=== PATIENT | male | born 1950 | race Caucasian/White ===

== ENCOUNTER 2018-11-03 10:25 | Emergency (ER) | payer MEDICARE, BC ==
[2018-11-03 12:04] LABS: ANION GAP 13.7; CHLORIDE,CL 104 mmol/L (101-111); SODIUM,NA 136 mmol/L (135-145)
--- NOTE | 2018-11-03 12:21 | CR ---
Clinical history: 68-year-old male left great toe pain. Interpretation: Abnormal. 3 views left foot confirm chronic severe arthritic degenerative changes first metatarsophalangeal joint i.e. joint space loss, dense reactive sclerosis and marginal spur formation (associated small soft tissue bunion). Note: Differential diagnoses includes gouty arthritis but significantly there are characteristic osteoarthritic changes involving multiple other joints i.e. first tarsal metatarsal, second metatarsal phalangeal, and all interphalangeal/DIP joints of the left forefoot. Tiny heel spur at the insertion plantar aponeurosis base of the os calcis. Vascular calcifications soft tissues (diabetic?). No foreign bodies or inflammatory periostitis. No sign of acute left foot fracture or dislocation. CONCLUSION: Arthritis (see above) with particularly severe involvement left great toe.
--- NOTE | 2018-11-03 13:00 | EDM.PDOC ---
ED HPI GENERAL MEDICAL PROBLEM - General Chief Complaint: Lower Extremity Injury/Pain Stated Complaint: SWOLLEN TOE AND FOOT Time Seen by Provider: 11/03/18 12:40 Source of Information: Reports: Patient History Limitations: Reports: No Limitations - History of Present Illness INITIAL COMMENTS - FREE TEXT/NARRATIVE: This 68 yo male patient reports to the ED with left great toe pain and swelling. The patient reports he has had similar episodes in the past, but previous episodes were not this bad. The patient has not been seen by his primary care facility for his current symptoms. Onset: Gradual Duration: Week(s):, Constant, Getting Worse Location: Reports: Lower Extremity, Left Quality: Reports: Ache, Sharp, Stabbing Severity: Moderate Improves with: Reports: None Worsens with: Reports: None Context: Reports: Other Associated Symptoms: Reports: No Other Symptoms Left Toe-[place] Pain Score (Numeric/FACES): 5 - Related Data Allergies Allergy/AdvReac Type Severity Reaction Status Date / Time No Known Allergies Allergy Verified 11/03/18 11:08 Home Meds: Home Meds Albuterol [Ventolin HFA] 2 puff INH Q4H PRN 11/03/18 [History] Diltiazem HCl [Dilt-Xr] 1 cap PO DAILY 11/03/18 [History] Fluticasone/Vilanterol [Breo Ellipta 200-25 Mcg INH] 1 puff INH DAILY 11/03/18 [ History] Furosemide 1 tab PO DAILY 11/03/18 [History] Nitroglycerin 0.4 mg SL TID PRN 11/03/18 [History] Roflumilast [Daliresp] 1 tab PO DAILY 11/03/18 [History] Umeclidinium [place] [Incruse Ellipta*] 1 puff INH DAILY 11/03/18 [History] Venlafaxine [Venlafaxine HCl ER] 1 cap PO DAILY 11/03/18 [History] Past Medical History Cardiovascular History: Reports: [place]ib, [place] Respiratory History: Reports: Asthma, COPD Genitourinary History: Reports: BPH - Infectious Disease History Infectious Disease History: Reports: Chicken Pox, Measles - Past Surgical History GI Surgical History: Reports: Cholecystectomy Musculoskeletal Surgical History: Reports: Other (See Below) Other Musculoskeletal Surgeries/Procedures:: hx R) ankle surgery Social & Family History - Tobacco Use Smoking Status *Q: Former Smoker Used Tobacco, but Quit: Yes Month/Year Tobacco Last Used: 23 years ago - Caffeine Use Caffeine Use: Reports: Energy Drinks - Recreational Drug Use Recreational Drug Use: No Review of Systems - Review of Systems Review Of Systems: ROS reveals no pertinent complaints other than HPI. ED EXAM, GENERAL - Physical Exam Exam: See Below Exam Limited By: No Limitations General Appearance: Alert, WD/WN, Moderate Distress Eye Exam: Bilateral Eye: EOMI, Normal Inspection, PERRL Ears: Normal External Exam, Normal Canal, Hearing Grossly Normal, Normal TMs Nose: Normal Inspection, Normal Mucosa, No Blood Throat/Mouth: Normal Inspection, Normal Lips, Normal Teeth, Normal Gums, Normal Oropharynx, Normal Voice, No Airway Compromise Head: Atraumatic, Normocephalic Neck: Normal Inspection, Supple, Non-Tender, Full Range of Motion Respiratory/Chest: No Respiratory Distress, Lungs Clear, Normal Breath Sounds, No Accessory Muscle Use, Chest Non-Tender Cardiovascular: Normal Peripheral Pulses, Regular Rate, Rhythm, No Edema, No Gallop, No JVD, No Murmur, No Rub GI/Abdominal: Normal Bowel Sounds, Soft, Non-Tender, No Organomegaly, No Distention, No Abnormal Bruit, No Mass (Male) Exam: Deferred Rectal (Males) Exam: Deferred Back Exam: Normal Inspection, Full Range of Motion, NT Extremities: Joint Swelling (left great toe erythema ) Neurological: Alert, Oriented, CN II-XII Intact, Normal Cognition, Normal Gait, Normal Reflexes, No Motor/Sensory Deficits Psychiatric: Normal Affect, Normal Mood Lymphatic: No Adenopathy Course - Vital Signs Last Recorded V/S: Last Vital Signs Temp 36.4 C 11/03/18 11:18 Pulse 95 11/03/18 11:18 Resp 16 11/03/18 11:18 BP 103/68 11/03/18 11:18 Pulse Ox 97 11/03/18 11:18 - Orders/Labs/Meds Labs: Laboratory Tests 11/03/18 11/03/18 Range/Units 11:37 11:37 WBC 6.4 (5.0-10.0) 10^3/uL RBC 4.63 (4.6-6.2) 10^6/uL Hgb 14.8 (14.0-18.0) g/dL Hct 42.6 (40.0-54.0) % MCV 92.0 (80-100) fL MCH 32.0 (27.0-34.0) pg MCHC 34.7 (33.0-35.0) g/dL Plt Count 154 (150-450) 10^3/uL Neut % (Auto) 64.3 (42.2-75.2) % Lymph % (Auto) 24.1 (20.5-50.1) % [place] % (Auto) 9.4 H (2-8) % Eos % (Auto) 1.3 (1.0-3.0) % Baso % (Auto) 0.9 (0.0-1.0) % Sodium 136 (135-145) mmol/L Potassium 3.7 (3.6-5.0) mmol/L Chloride 104 (101-111) mmol/L Carbon Dioxide 22.0 (21.0-31.0) mmol/L Anion Gap 13.7 BUN 15 (7-18) mg/dL Creatinine 0.8 (0.6-1.3) mg/dL Est Cr Clr Drug Dosing 88.38 mL/min Estimated GFR (MDRD) > 60 BUN/Creatinine Ratio 18.75 Glucose 146 H (74-105) mg/dL Uric Acid 9.9 H (2.6-7.2) mg/dL Calcium 8.9 (8.4-10.2) mg/dl Total Bilirubin 1.6 H (0.2-1.0) mg/dL AST 30 (10-42) IU/L ALT 20 (10-60) IU/L Alkaline Phosphatase 96 (42-121) IU/L Total Protein 6.8 (6.7-8.2) g/dl Albumin 3.8 (3.2-5.5) g/dl Globulin 3.0 Albumin/Globulin Ratio 1.27 Departure - Departure Time of Disposition: 12:55 Disposition: Home, Self-Care 01 Condition: Fair Clinical Impression: Acute gout involving toe Qualifiers: Gout etiology: unspecified cause Laterality: left Qualified Code(s): M10.9 - Gout, unspecified - Discharge Information *PRESCRIPTION DRUG MONITORING PROGRAM REVIEWED*: Not Applicable *COPY OF PRESCRIPTION DRUG MONITORING REPORT IN PATIENT DASIA: Not Applicable Instructions: Low-Purine Eating Plan, Gout, [id number] Forms: ED Department Discharge Care Plan Goals: The patient was advised of the examination and lab results during the visit. The patient was discharged with a script for Colchicine (0.6 mg) #3 to take 2 by mouth initially and 1 by mouth 1 hour after the initial dose. The patient should follow-up with his primary care facility next week for continued evaluation and management. If the patient has any additional symptoms or concerns, the patient should either return to the emergency department or visit his primary care facility.
== END 2018-11-03 13:04 | disposition home or self-care (01) ==
LOC: DL.ED 10:25
DX: M10.9 Gout, unspecified (principal); I48.91 Unspecified atrial fibrillation; I25.2 Old myocardial infarction; J45.909 Unspecified asthma, uncomplicated; Z87.891 Personal history of nicotine dependence; Z79.899 Other long term (current) drug therapy
CPT/HCPCS: 36415; 73630-LT; 80053; 84550; 85025; 99283; 99283-25

== ENCOUNTER 2019-06-11 13:26 | Emergency (ER) | payer MEDICARE, BC ==
--- NOTE | 2019-06-11 13:43 | EDM.PDOC ---
ED HPI GENERAL MEDICAL PROBLEM - General Chief Complaint: Lower Extremity Injury/Pain Stated Complaint: RIGHT FOOT, LITTLE TOE AND NEXT TOE IN Time Seen by Provider: 06/11/19 13:40 Source of Information: Reports: Patient, Old Records, RN, RN Notes Reviewed History Limitations: Reports: No Limitations - History of Present Illness INITIAL COMMENTS - FREE TEXT/NARRATIVE: 69 y.o male presents to ER with c/o right foot 4th & 5th toe pain that began 1 week ago. Patient reports that he did stub his little toe during at the time the pain began. Patient reports that pain is located between 4th and 5th toe. Patient denies shooting pain, states that it hurts to put pressure on that foot. Patient denies medication use for pain relief. Patient denies history of toe pain. Duration: Week(s): (1) Location: Reports: Lower Extremity, Right Quality: Reports: Ache Severity: Moderate Improves with: Reports: None Worsens with: Reports: None Associated Symptoms: Reports: No Other Symptoms Right Foot Pain Score (Numeric/FACES): 5 - Related Data Allergies Allergy/AdvReac Type Severity Reaction Status Date / Time No Known Allergies Allergy Verified 06/11/19 13:35 Home Meds: Home Meds Albuterol [Ventolin HFA] 2 puff INH Q4H PRN 11/03/18 [History] Diltiazem HCl [Dilt-Xr] 1 cap PO DAILY 11/03/18 [History] Fluticasone/Vilanterol [Breo Ellipta 200-25 MCG Inhalation Kit] 1 puff INH DAILY 11/03/18 [History] Furosemide 1 tab PO DAILY 11/03/18 [History] Nitroglycerin 0.4 mg SL TID PRN 11/03/18 [History] Roflumilast [Daliresp] 1 tab PO DAILY 11/03/18 [History] Umeclidinium [place] [Incruse Ellipta*] 1 puff INH DAILY 11/03/18 [History] Venlafaxine [Venlafaxine HCl ER] 1 cap PO DAILY 11/03/18 [History] Past Medical History Cardiovascular History: Reports: Afib, [place] Respiratory History: Reports: Asthma, COPD Genitourinary History: Reports: BPH Musculoskeletal History: Reports: Gout - Infectious Disease History Infectious Disease History: Reports: Chicken Pox, Measles - Past Surgical History GI Surgical History: Reports: Cholecystectomy Musculoskeletal Surgical History: Reports: Other (See Below) Other Musculoskeletal Surgeries/Procedures:: hx R) ankle surgery Social & Family History - Family History Family Medical History: Noncontributory - Caffeine Use Caffeine Use: Reports: Energy Drinks - Living Situation & Occupation Occupation: Retired Review of Systems - Review of Systems Review Of Systems: Comprehensive ROS is negative, except as noted in HPI. 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 No: Joint Swelling, Tobias's Sign Neurological: Alert, Oriented, No Motor/Sensory Deficits Psychiatric: Normal Mood Skin Exam: Other (Interdigit webspace of Rt toes 4 & 5 with white loose skin and mild redness with well defined border consistent with tinea pedis) Course - Vital Signs Last Recorded V/S: Last Vital Signs Temp 97.2 F 06/11/19 13:31 Pulse 90 06/11/19 13:31 Resp 18 06/11/19 13:31 BP 140/73 06/11/19 13:31 Pulse Ox 98 06/11/19 13:31 - Orders/Labs/Meds Orders: Active Orders 24 hr Category Date Time Status Toes Multiple Rt [CR] Urgent Exams 06/11/19 13:47 Taken - Radiology Interpretation Free Text/Narrative:: XR Rt toes: no acute fractures, see Rad. report. Departure - Departure Time of Disposition: 14:31 Disposition: Home, Self-Care 01 Condition: Good Clinical Impression: Tinea pedis of right foot - Discharge Information *PRESCRIPTION DRUG MONITORING PROGRAM REVIEWED*: No *COPY OF PRESCRIPTION DRUG MONITORING REPORT IN PATIENT DASIA: No Instructions: Athlete's Foot, [id number] Forms: ED Department Discharge Additional Instructions: Rx: Fluconazole 100mg Keep space between toes clean and dry. Use an over the counter antifungal foot powder. Follow up in clinic in 2 weeks for recheck. - My Orders Last 24 Hours: My Active Orders 06/11/19 13:47 Toes Multiple Rt [CR] Urgent - Assessment/Plan Last 24 Hours: My Active Orders 06/11/19 13:47 Toes Multiple Rt [CR] Urgent
--- NOTE | 2019-06-11 14:57 | CR ---
EXAMINATION: Toes Multiple Rt SEX: Male AGE: 69 years CLINICAL HISTORY: 69-year-old male right forefoot pain (stubbed Rt 4th/5th toes, 1 week ago). INTERPRETATION: 1. Chronic arthritic reactive changes first metatarsophalangeal and all interphalangeal/DIP joints of the right forefoot. 2. No sign of right forefoot (toe) fracture or dislocation. (Sesamoid bones) 3. No foreign bodies. 4. Large heel spur at insertion plantar aponeurosis base of the os calcis. CONCLUSION: No fractures. Arthritis.
== END 2019-06-11 14:48 | disposition home or self-care (01) ==
LOC: DL.ED 13:26
DX: B35.3 Tinea pedis (principal); M21.961 Unspecified acquired deformity of right lower leg; I25.2 Old myocardial infarction; J44.9 Chronic obstructive pulmonary disease, unspecified; Z79.51 Long term (current) use of inhaled steroids
CPT/HCPCS: 73660-RT; 99283-25

== ENCOUNTER 2021-01-01 17:02 | Inpatient (IN) | payer MEDICARE, BC ==
--- NOTE | 2021-01-01 17:55 | EDM.PDOC ---
ED HPI GENERAL MEDICAL PROBLEM - General Chief Complaint: General Stated Complaint: ANIMEIA, SHORT OF BREATH. FATIGUE, LOW HEMAGLOBIN Time Seen by Provider: 01/01/21 17:55 Source of Information: Reports: Patient History Limitations: Reports: No Limitations - History of Present Illness INITIAL COMMENTS - FREE TEXT/NARRATIVE: Patient comes emergency department today from the clinic for further evaluation of low hemoglobin. This patient reports over the past 3 to 4 weeks that he has had increasing generalized weakness lightheadedness and dizziness. He went to the clinic today for the concerns of the symptoms. He was found to have a hemoglobin of 5. He was sent to the emergency department for further evaluation. Upon arrival the patient is alert and appropriate. He denies any chest pain no shortness of breath difficulty breathing cough or congestion. He does complain of generalized weakness malaise fatigue. No syncope. He does have some lightheadedness upon standing. Over the past week he has developed right lower quadrant abdominal pain. Is not gotten worse or radiated. He has not had any nausea or vomiting. He has had no hematuria dysuria or urinary f requency. No black or tarry stools. His last colonoscopy was about 5 years ago. He has never noticed any black or tarry stools. - Related Data Allergies Allergy/AdvReac Type Severity Reaction Status Date / Time No Known Allergies Allergy Verified 06/11/19 13:35 Home Meds: Home Meds Albuterol [Ventolin HFA] 2 puff INH Q4H PRN 11/03/18 [History] Fluticasone/Vilanterol [Breo Ellipta 200-25 MCG Inhalation Kit] 1 puff INH DAILY 11/03/18 [History] Furosemide 1 tab PO DAILY 11/03/18 [History] Nitroglycerin 0.4 mg SL TID PRN 11/03/18 [History] Roflumilast [Daliresp] 1 tab PO DAILY 11/03/18 [History] Umeclidinium [place] [Incruse Ellipta*] 1 puff INH DAILY 11/03/18 [History] Venlafaxine [Venlafaxine HCl ER] 1 cap PO DAILY 11/03/18 [History] dilTIAZem HCL [Dilt-Xr] 1 cap PO DAILY 11/03/18 [History] Past Medical History - Past Health History Medical/Surgical History: Denies Medical/Surgical History Cardiovascular History: Reports: Afib, [place] Respiratory History: Reports: Asthma, COPD Genitourinary History: Reports: BPH Musculoskeletal History: Reports: Gout Endocrine/Metabolic History: Reports: Obesity/BMI 30+ - Infectious Disease History Infectious Disease History: Reports: Chicken Pox, Measles - Past Surgical History HEENT Surgical History: Reports: Cataract Surgery, Other (See Below) Other HEENT Surgeries/Procedures: bilateral eye Cardiovascular Surgical History: Reports: Coronary Artery Stent Respiratory Surgical History: Reports: None GI Surgical History: Reports: Cholecystectomy Musculoskeletal Surgical History: Reports: Other (See Below) Other Musculoskeletal Surgeries/Procedures:: hx R) ankle surgery Social & Family History - Family History Family Medical History: No Pertinent Family History - Caffeine Use Caffeine Use: Reports: Energy Drinks - Living Situation & Occupation Occupation: Retired ED ROS GENERAL - Review of Systems Review Of Systems: Comprehensive ROS is negative, except as noted in HPI. ED EXAM, GENERAL - Physical Exam Exam: See Below Exam Limited By: No Limitations General Appearance: Alert, WD/WN, No Apparent Distress Ears: Normal External Exam Nose: Normal Inspection Throat/Mouth: Normal Inspection Head: Atraumatic, Normocephalic Neck: Normal Inspection, Supple, Non-Tender Respiratory/Chest: No Respiratory Distress, Lungs Clear, Normal Breath Sounds, No Accessory Muscle Use, Chest Non-Tender Cardiovascular: Normal Peripheral Pulses, Regular Rate, Rhythm, Systolic Murmur Peripheral Pulses: 2+: Radial (L), Radial (R), Posterior Tibial (L), Posterior Tibial (R), Dorsalis Pedis (L), Dorsalis Pedis (R) GI/Abdominal: Normal Bowel Sounds, Soft, Tender (He has some mild tenderness to the right lateral lower quadrant of his abdomen. Without guarding rebound or rigidity.) (Male) Exam: Deferred Rectal (Males) Exam: Heme - Stool Back Exam: Normal Inspection, Full Range of Motion Extremities: Normal Inspection, Normal Range of Motion, No Pedal Edema, Normal Capillary Refill Neurological: Alert, Oriented, No Motor/Sensory Deficits Skin Exam: Dry, Intact, No Rash, Cool, Pallor Lymphatic: No Adenopathy Course - Vital Signs Last Recorded V/S: Last Vital Signs Temp 99.5 F 01/01/21 20:33 Pulse 78 01/01/21 20:33 Resp 18 01/01/21 20:33 BP 132/51 L 01/01/21 20:33 Pulse Ox 98 01/01/21 20:33 - Orders/Labs/Meds Orders: Active Orders 24 hr Category Date Time Status EKG Documentation Completion [RC] STAT Care 01/01/21 18:01 Active RED BLOOD CELLS LP [BBK] Stat Lab 01/01/21 18:10 Results TYPE AND SCREEN [BBK] Stat Lab 01/01/21 18:10 Results Transfuse PRBC [Transfuse Red Blood Cells] [COMM] Stat Oth 01/01/21 18:02 Ordered Labs: Laboratory Tests 01/01/21 01/01/21 01/01/21 Range/Units 18:10 18:10 18:10 WBC 3.3 L (5.0-10.0) 10^3/uL RBC 1.32 L (4.6-6.2) 10^6/uL Hgb 4.8 L* D (14.0-18.0) g/dL Hct 15.0 L* (40.0-54.0) % MCV 113.6 H D (80-100) fL MCH 36.4 H (27.0-34.0) pg MCHC 32.0 L (33.0-35.0) g/dL Plt Count 167 (150-450) 10^3/uL Neut % (Auto) 37.6 L (42.2-75.2) % Lymph % (Auto) 37.8 (20.5-50.1) % [place] % (Auto) 20.0 H (2-8) % Eos % (Auto) 3.7 H (1.0-3.0) % Baso % (Auto) 0.9 (0.0-1.0) % Sodium 146 H (136-145) mmol/L Potassium 3.4 L (3.5-5.1) mmol/L Chloride 109 H (98-107) mmol/L Carbon Dioxide 29 (21-32) mmol/L Anion Gap 11.4 (7-13) mEq/L BUN 14 (7-18) mg/dL Creatinine 0.94 (0.70-1.30) mg/dL Est Cr Clr Drug Dosing 75.50 mL/min Estimated GFR (MDRD) > 60 Glucose 125 H (70-99) mg/dL Lactic Acid 1.6 (0.4-2.0) mmol/L Calcium 8.1 L (8.5-10.1) mg/dL Troponin I High Sens 13 (<=76) pg/mL B-Natriuretic Peptide 137 H (0-100) pg/ml SARS-CoV-2 RNA (JENA) (NEGATIVE) Blood Type Gel Antibody Screen Crossmatch 01/01/21 01/01/21 Range/Units 18:10 18:30 WBC (5.0-10.0) 10^3/uL RBC (4.6-6.2) 10^6/uL Hgb (14.0-18.0) g/dL Hct (40.0-54.0) % MCV (80-100) fL MCH (27.0-34.0) pg MCHC (33.0-35.0) g/dL Plt Count (150-450) 10^3/uL Neut % (Auto) (42.2-75.2) % Lymph % (Auto) (20.5-50.1) % [place] % (Auto) (2-8) % Eos % (Auto) (1.0-3.0) % Baso % (Auto) (0.0-1.0) % Sodium (136-145) mmol/L Potassium (3.5-5.1) mmol/L Chloride (98-107) mmol/L Carbon Dioxide (21-32) mmol/L Anion Gap (7-13) mEq/L BUN (7-18) mg/dL Creatinine (0.70-1.30) mg/dL Est Cr Clr Drug Dosing mL/min Estimated GFR (MDRD) Glucose (70-99) mg/dL Lactic Acid (0.4-2.0) mmol/L Calcium (8.5-10.1) mg/dL Troponin I High Sens (<=76) pg/mL B-Natriuretic Peptide (0-100) pg/ml SARS-CoV-2 RNA (JENA) Negative (NEGATIVE) Blood Type O POSITIVE Gel Antibody Screen Negative Crossmatch See Detail Meds: Medications Discontinued Medications Generic Name Dose Route Start Last Admin Trade Name Freq PRN Reason Stop Dose Admin Iopamidol 100 ml 01/01/21 19:25 01/01/21 19:27 Iopamidol 612 Mg/Ml 100 Ml Bottle IVPUSH 01/01/21 19:26 100 ml ONETIME ONE Administration - Re-Assessments/Exams Free Text/Narrative Re-Assessment/Exam: 01/01/21 1815 IV established labs drawn. Hemoccult pending. EKG done. 2 units RBCs ordered. Hemoccult negative. Laboratory evaluation with a CBC of a WBC 3.3, hemoglobin 4.8, he adequate 15.0 platelet count 167. Sodium 146, potassium 3.4, chloride 109 glucose 125. Troponin high-sensitivity 13. proBNP 137. We started the first unit of blood in the emergency department. I called and spoke with Dr. Inman. HPI ER course findings and concerns were relayed to him verbally over the phone. I think that this is most likely a chronic low volume GI bleed. Why he is vitally stable and tolerating his hemoglobin this well. Although his Hemoccult is negative I find no other signs of bleeding at this time. CT scan of his abdomen is negative for any acute findings. The doctor would like the patient evaluated by gastroenterology. I called and spoke with the hospitals in [place] as well as [place]. They do not have any beds available until tomorrow afternoon. He was placed on a waiting list for transfer to [facility]. Dr. Inman did accept this patient here for further care and management and most likely transfer when a bed is available in [place]. I discussed the findings and concerns with the patient. He is comfortable with this plan and his questions were answered. Departure - Departure Time of Disposition: 20:00 Disposition: Admitted As Inpatient 66 Clinical Impression: Anemia Qualifiers: Anemia type: unspecified type Qualified Code(s): D64.9 - Anemia, unspecified Abdominal pain Qualifiers: Abdominal location: unspecified location Qualified Code(s): R10.9 - Unspecified abdominal pain - Discharge Information Sepsis Event Note (ED) - Evaluation Sepsis Screening Result: No Definite Risk - Focused Exam Vital Signs: Vital Signs Temp Pulse Resp BP Pulse Ox 01/01/21 17:23 98.3 F 81 18 139/53 L 99 - My Orders Last 24 Hours: My Active Orders 01/01/21 18:01 EKG Documentation Completion [RC] STAT 01/01/21 18:02 Transfuse PRBC [Transfuse Red Blood Cells] [COMM] Stat 01/01/21 18:10 RED BLOOD CELLS LP [BBK] Stat TYPE AND SCREEN [BBK] Stat - Assessment/Plan Last 24 Hours: My Active Orders 01/01/21 18:01 EKG Documentation Completion [RC] STAT 01/01/21 18:02 Transfuse PRBC [Transfuse Red Blood Cells] [COMM] Stat 01/01/21 18:10 RED BLOOD CELLS LP [BBK] Stat TYPE AND SCREEN [BBK] Stat
[2021-01-01 18:37] LABS: ANION GAP 11.4 mEq/L (7-13); CHLORIDE,CL 109 mmol/L (98-107); SODIUM,NA 146 mmol/L (136-145)
--- NOTE | 2021-01-01 19:07 | PCM.EKG ---
#1 Interpretation EKG Date: 01/01/21 Time: 18:26 Rhythm: NSR Rate (Beats/Min): 77 [place]: Normal P-Wave: Present QRS: RBBB ST-T: Normal QT: Normal Comparison: No Change
[2021-01-01] MEDS ORDERED: Iopamidol 612 MG/ML 100 ML Bottle IVPUSH ONE (19:25)
--- NOTE | 2021-01-01 19:59 | CT ---
PROCEDURE INFORMATION: Exam: CT Abdomen And Pelvis With Contrast Exam date and time: 01/01/2021 7:08 PM Age: 70 years old Clinical indication: Abdominal pain; Localized; Right; Prior surgery; Surgery date: 6+ months; Surgery type: Cholecystectomy; Additional info: Abd pain anemia TECHNIQUE: Imaging protocol: Computed tomography of the abdomen and pelvis with contrast. Radiation optimization: All CT scans at this facility use at least one of these dose optimization techniques: automated exposure control; mA and/or kV adjustment per patient size (includes targeted exams where dose is matched to clinical indication); or iterative reconstruction. Contrast material: ISOVUE 300; Contrast volume: 100 ml; Contrast route: INTRAVENOUS (IV); COMPARISON: No relevant prior studies available. FINDINGS: Lungs: Patchy parenchymal infiltrate at the right lung base. Liver: Normal. No mass. Gallbladder and bile ducts: There has been a cholecystectomy. Pancreas: There is diffuse pancreatic atrophy. Spleen: Normal. No splenomegaly. Adrenal glands: Normal. No mass. Kidneys and ureters: 9 mm simple cortical cyst left kidney. No follow-up suggested. Kidneys otherwise unremarkable. Stomach and bowel: Moderate diverticulosis is present in the distal colon. No diverticulitis. Appendix: No evidence of appendicitis. Intraperitoneal space: Unremarkable. No free air. No significant fluid collection. Vasculature: The aortoiliac vessels demonstrate mild atherosclerotic calcification. Lymph nodes: Unremarkable. No enlarged lymph nodes. Urinary bladder: Unremarkable as visualized. Reproductive: The prostate gland demonstrates marked hyperplasia. Bones/joints: Moderate central spinal stenosis L4-L5. The spine demonstrates moderate degenerative changes. Soft tissues: There is a small umbilical hernia. There is no evidence of incarceration. Other findings: Osteoporosis. IMPRESSION: 1. Patchy parenchymal infiltrate at the right lung base. 2. Marked prostatic hyperplasia. 3. There has been a cholecystectomy. 4. There is diffuse pancreatic atrophy. 5. Moderate diverticulosis is present in the distal colon. No diverticulitis. COMMENTS: Consistent with the [place]'s Incidental Findings Committee white paper (J Am Lenora Radiol 2018): Any incidental renal lesion less than 1 cm or classified as too small to characterize, or any incidental cystic renal lesion characterized as simple-appearing, is likely benign. No follow-up imaging is recommended for these lesions per consensus recommendations based on imaging criteria.
[2021-01-01] MEDS ORDERED: Acetaminophen 325 MG Tab PO PRN (21:20)
[2021-01-01] MEDS ORDERED: Sodium Chloride 0.9% 10 ML Syringe FLUSH PRN (21:20)
[2021-01-01] MEDS ORDERED: Ondansetron 4 MG/2 ML SDV IVPUSH PRN (21:20)
[2021-01-01] MEDS ORDERED: Potassium Chloride 10 MEQ Tab.ER PO ONE (21:22)
[2021-01-01] MEDS ORDERED: cefTRIAXone 1 GM in Sodium Chloride 0.9% 50 ML IV SCH (21:30)
[2021-01-01] MEDS ORDERED: Azithromycin 500 MG in Sodium Chloride 0.9% 250 ML IV SCH (21:30)
--- NOTE | 2021-01-01 21:32 | PCM.HP ---
H&P History of Present Illness - General Date of Service: 01/01/21 Admit Problem/Dx: Admission Diagnosis/Problem Admission Diagnosis/Problem Anemia Source of Information: Patient - History of Present Illness Initial Comments - Free Text/Narative: The patient is a 70-year-old male who presents with chief complaint of generalized weakness. The patient states he had been feeling unwell for approximately 2 weeks and saw his primary care physician, Dr. Monsalve, and was subsequently referred to the emergency department because his hemoglobin was found to be profoundly low. The patient admits to experiencing fatigue, dyspnea on exertion, lightheadedness, dizziness. He denies melena or hematochezia. He denies any weight loss over last 6 months. He states that his last colonoscopy was in 2018 and it was unremarkable. He states that he had an EGD approximately 12 years prior to hospitalization but for some unknown reason they were not able to fully enter the stomach for the examination. The patient denies any NSAID use aside from aspirin 81 mg p.o. daily. He indicates that he may have overused if not abused alcohol when he was approximately 25 years old but no longer uses alcohol. He presents for further evaluation - Related Data Allergies/Adverse Reactions: Allergies Allergy/AdvReac Type Severity Reaction Status Date / Time No Known Allergies Allergy Verified 06/11/19 13:35 Home Medications: Home Meds Albuterol [Ventolin HFA] 2 puff INH Q4H PRN 11/03/18 [History] Fluticasone/Vilanterol [Breo Ellipta 200-25 MCG Inhalation Kit] 1 puff INH DAILY 11/03/18 [History] Furosemide 1 tab PO DAILY 11/03/18 [History] Nitroglycerin 0.4 mg SL TID PRN 11/03/18 [History] Roflumilast [Daliresp] 1 tab PO DAILY 11/03/18 [History] Umeclidinium [place] [Incruse Ellipta*] 1 puff INH DAILY 11/03/18 [History] Venlafaxine [Venlafaxine HCl ER] 1 cap PO DAILY 11/03/18 [History] dilTIAZem HCL [Dilt-Xr] 1 cap PO DAILY 11/03/18 [History] Past Medical History - Past Health History Medical/Surgical History: Denies Medical/Surgical History Cardiovascular History: Reports: Afib, CT Respiratory History: Reports: Asthma, COPD Genitourinary History: Reports: BPH Musculoskeletal History: Reports: Gout Endocrine/Metabolic History: Reports: Obesity/BMI 30+ - Infectious Disease History Infectious Disease History: Reports: Chicken Pox, Measles - Past Surgical History HEENT Surgical History: Reports: Cataract Surgery, Other (See Below) Other HEENT Surgeries/Procedures: bilateral eye Cardiovascular Surgical History: Reports: Coronary Artery Stent Respiratory Surgical History: Reports: None GI Surgical History: Reports: Cholecystectomy Musculoskeletal Surgical History: Reports: Other (See Below) Other Musculoskeletal Surgeries/Procedures:: hx R) ankle surgery Social & Family History - Family History Family Medical History: No Pertinent Family History - Tobacco Use Tobacco Use Status *Q: Unknown Ever Used Tobacco - Caffeine Use Caffeine Use: Reports: Energy Drinks - Living Situation & Occupation Occupation: Retired H&P Review of Systems - Review of Systems: Review Of Systems: See Below General: Reports: No Symptoms HEENT: Reports: No Symptoms Pulmonary: Reports: No Symptoms Cardiovascular: Reports: No Symptoms Gastrointestinal: Reports: No Symptoms Genitourinary: Reports: No Symptoms Musculoskeletal: Reports: No Symptoms Skin: Reports: No Symptoms Psychiatric: Reports: No Symptoms Neurological: Reports: No Symptoms Hematologic/Lymphatic: Reports: No Symptoms Immunologic: Reports: No Symptoms Exam - Exam Exam: See Below - Vital Signs Vital Signs: Last Vital Signs Temp 98.8 F 01/01/21 20:48 Pulse 76 01/01/21 20:48 Resp 18 01/01/21 20:48 BP 124/49 L 01/01/21 20:48 Pulse Ox 98 01/01/21 20:48 Weight: 220 lb - Exam General: Alert, Oriented, 4 HEENT: PERRLA, Hearing Intact, Mucosa Moist & [place], Nares Patent, Normal Nasal Septum, Posterior Pharynx Clear, Conjunctiva Clear, EOMI, EACs Clear, TMs Clear Neck: Supple, Trachea Midline, 2 Lungs: Clear to Auscultation, Normal Respiratory Effort Cardiovascular: Regular Rate, Regular Rhythm GI/Abdominal Exam: Normal Bowel Sounds, Soft, Non-Tender, No Organomegaly, No Distention, No Abnormal Bruit, No Mass, Pelvis Stable Back Exam: Normal Inspection, Full Range of Motion, NT Extremities: Normal Inspection, Normal Range of Motion, Non-Tender, No Pedal Edema, Normal Capillary Refill Peripheral Pulses: 2+: Carotid (L), Carotid (R), Brachial (L), Brachial (R), Radial (L), Radial (R), Femoral (L), Femoral (R), Popliteal (L), Popliteal (R), Posterior Tibial (L), Posterior Tibial (R), Dorsalis Pedis (L), Dorsalis Pedis (R) Skin: Warm, Dry, Intact Neurological: Cranial Nerves Intact, Reflexes Equal Bilateral Neuro Extensive - Mental Status: Alert, Oriented x3, Normal Mood/Affect, Normal Cognition Neuro Extensive - Motor, Sensory, Reflexes: CN II-XII Intact, Normal Gait, Normal Reflexes DTR: 2+: Bicep (L), Bicep (R), Tricep (L), Tricep (R), Patella (L), Patella (R), Achilles (L), Achilles (R) Psychiatric: Alert, Normal Affect, Normal Mood - Patient Data Lab Results Last 24 hrs: Laboratory Results - last 24 hr 01/01/21 01/01/21 01/01/21 Range/Units 18:10 18:10 18:10 WBC 3.3 L (5.0-10.0) 10^3/uL RBC 1.32 L (4.6-6.2) 10^6/uL Hgb 4.8 L* D (14.0-18.0) g/dL Hct 15.0 L* (40.0-54.0) % MCV 113.6 H D (80-100) fL MCH 36.4 H (27.0-34.0) pg MCHC 32.0 L (33.0-35.0) g/dL Plt Count 167 (150-450) 10^3/uL Neut % (Auto) 37.6 L (42.2-75.2) % Lymph % (Auto) 37.8 (20.5-50.1) % [place] % (Auto) 20.0 H (2-8) % Eos % (Auto) 3.7 H (1.0-3.0) % Baso % (Auto) 0.9 (0.0-1.0) % Sodium 146 H (136-145) mmol/L Potassium 3.4 L (3.5-5.1) mmol/L Chloride 109 H (98-107) mmol/L Carbon Dioxide 29 (21-32) mmol/L Anion Gap 11.4 (7-13) mEq/L BUN 14 (7-18) mg/dL Creatinine 0.94 (0.70-1.30) mg/dL Est Cr Clr Drug Dosing 75.50 mL/min Estimated GFR (MDRD) > 60 Glucose 125 H (70-99) mg/dL Lactic Acid 1.6 (0.4-2.0) mmol/L Calcium 8.1 L (8.5-10.1) mg/dL Troponin I High Sens 13 (<=76) pg/mL B-Natriuretic Peptide 137 H (0-100) pg/ml SARS-CoV-2 RNA (JENA) (NEGATIVE) Blood Type Gel Antibody Screen Crossmatch 01/01/21 01/01/21 Range/Units 18:10 18:30 WBC (5.0-10.0) 10^3/uL RBC (4.6-6.2) 10^6/uL Hgb (14.0-18.0) g/dL Hct (40.0-54.0) % MCV (80-100) fL MCH (27.0-34.0) pg MCHC (33.0-35.0) g/dL Plt Count (150-450) 10^3/uL Neut % (Auto) (42.2-75.2) % Lymph % (Auto) (20.5-50.1) % [place] % (Auto) (2-8) % Eos % (Auto) (1.0-3.0) % Baso % (Auto) (0.0-1.0) % Sodium (136-145) mmol/L Potassium (3.5-5.1) mmol/L Chloride (98-107) mmol/L Carbon Dioxide (21-32) mmol/L Anion Gap (7-13) mEq/L BUN (7-18) mg/dL Creatinine (0.70-1.30) mg/dL Est Cr Clr Drug Dosing mL/min Estimated GFR (MDRD) Glucose (70-99) mg/dL Lactic Acid (0.4-2.0) mmol/L Calcium (8.5-10.1) mg/dL Troponin I High Sens (<=76) pg/mL B-Natriuretic Peptide (0-100) pg/ml SARS-CoV-2 RNA (JENA) Negative (NEGATIVE) Blood Type O POSITIVE Gel Antibody Screen Negative Crossmatch See Detail Result Diagrams: 01/01/21 18:10 01/01/21 18:10 Ronan Results Last 24 hrs: Microbiology 01/01/21 18:30 Stool Occult Blood (RONAN) - Final Stool / Feces NEGATIVE OCCULT BLOOD REFERENCE RANGE: NEGATIVE Problem List Initiated/Reviewed/Updated: Yes Orders Last 24hrs: Active Orders 24 hr Category Date Time Status Admission Status [Patient Status] [ADT] Routine ADT 01/01/21 20:02 Active Antiembolic Devices [RC] PER UNIT ROUTINE Care 01/01/21 21:21 Ordered Blood Glucose Check, Bedside [RC] WITHMEALSANDBED Care 01/01/21 21:20 Ordered Peripheral IV Care [RC] . DIRECTED Care 01/01/21 21:22 Ordered Up With Assistance [RC] ASDIRECTED Care 01/01/21 21:20 Ordered Vital Signs [RC] Q4H Care 01/01/21 21:20 Ordered Consistent Carbohydrate Diet [DIET] Diet 01/01/21 Dinner Ordered BASIC METABOLIC PANEL,BMP [CHEM] Routine Lab 01/02/21 05:00 Ordered ERYTHROPOIETIN [REF] Routine Lab 01/01/21 21:26 Ordered FERRITIN [CHEM] Routine Lab 01/01/21 21:23 Ordered FOLIC ACID [CHEM] Routine Lab 01/01/21 21:24 Ordered HGB [HEMOGLOBIN] [HEME] Q6H Lab 01/01/21 23:59 Ordered HGB [HEMOGLOBIN] [HEME] Q6H Lab 01/02/21 05:59 Ordered HGB [HEMOGLOBIN] [HEME] Q6H Lab 01/02/21 11:59 Ordered HGB [HEMOGLOBIN] [HEME] Q6H Lab 01/02/21 17:59 Ordered HGB [HEMOGLOBIN] [HEME] Q6H Lab 01/02/21 23:59 Ordered HGB [HEMOGLOBIN] [HEME] Q6H Lab 01/03/21 05:59 Ordered HGB [HEMOGLOBIN] [HEME] Q6H Lab 01/03/21 11:59 Ordered HGB [HEMOGLOBIN] [HEME] Q6H Lab 01/03/21 17:59 Ordered INR,PT,PROTHROMBIN TIME [COAG] Routine Lab 01/01/21 21:23 Ordered IRON/TIBC [CHEM] Routine Lab 01/01/21 21:24 Ordered LACTATE DEHYDROGENASE,LDH [CHEM] Routine Lab 01/01/21 21:26 Ordered PSA SCREEN [CHEM] Routine Lab 01/01/21 21:25 Ordered PTT,PARTIAL THROMBOPLSTIN TIME [COAG] Routine Lab 01/01/21 21:23 Ordered RED BLOOD CELLS LP [BBK] Stat Lab 01/01/21 18:10 Results RETICULOCYTE COUNT [HEME] Routine Lab 01/01/21 21:26 Ordered T4 FREE [CHEM] Routine Lab 01/01/21 21:24 Ordered TSH ULTRASENSITIVE [CHEM] Routine Lab 01/01/21 21:24 Ordered TYPE AND SCREEN [BBK] Stat Lab 01/01/21 18:10 Results VITAMIN B12 [CHEM] Routine Lab 01/01/21 21:24 Ordered Acetaminophen [TylenoL] Med 01/01/21 21:20 Ordered 650 mg PO Q4H PRN Azithromycin [Zithromax] 500 mg Med 01/01/21 21:30 Ordered Sodium Chloride 0.9% [Normal Saline (AdvBag)] 250 ml IV Q24H Ondansetron [Zofran] Med 01/01/21 21:20 Ordered 4 mg IVPUSH Q4H PRN Pantoprazole [ProTONIX IV] Med 01/01/21 21:30 Ordered 40 mg IVPUSH Q12H Potassium Chloride [Klor-Con 10] Med 01/01/21 21:22 Once 40 meq PO ONETIME ONE Sodium Chloride 0.9% [Saline Flush] Med 01/01/21 21:20 Ordered 10 ml FLUSH ASDIRECTED PRN Sucralfate [Carafate] Med 01/02/21 09:00 Ordered 1 gm PO QID cefTRIAXone [Rocephin] 1 gm Med 01/01/21 21:30 Ordered Sodium Chloride 0.9% [Normal Saline] 50 ml IV Q24H Peripheral IV Insertion Adult [OM.PC] Routine Oth 01/01/21 21:20 Ordered Saline Lock Insert [OM.PC] Routine Oth 01/01/21 21:20 Ordered Sequential Compression Device [OM.PC] Per Unit Routine Oth 01/01/21 21:21 Ordered Transfuse PRBC [Transfuse Red Blood Cells] [COMM] Stat Oth 01/01/21 18:02 Ordered Resuscitation Status Routine Resus Stat 01/01/21 21:20 Ordered Medication Orders Acetaminophen (Acetaminophen 325 Mg Tab) 650 mg PO Q4H PRN PRN Reason: Pain (Mild 1-3)/fever Azithromycin 500 mg/ Sodium (Chloride) 250 mls @ 250 mls/hr IV Q24H REFUGIO Ceftriaxone Sodium 1 gm/ (Sodium Chloride) 50 mls @ 100 mls/hr IV Q24H REFUGIO Ondansetron HCl (Ondansetron 4 Mg/2 Ml Sdv) 4 mg IVPUSH Q4H PRN PRN Reason: Nausea/Vomiting Pantoprazole Sodium (Pantoprazole 40 Mg Vial) 40 mg IVPUSH Q12H REFUGIO Potassium Chloride (Potassium Chloride 10 Meq Tab.Er) 40 meq PO ONETIME ONE Stop: 01/01/21 21:23 Sodium Chloride (Sodium Chloride 0.9% 10 Ml Syringe) 10 ml FLUSH ASDIRECTED PRN PRN Reason: Keep Vein Open Sucralfate (Sucralfate 1 Gm Tab) 1 gm PO QID REFUGIO Assessment/Plan Comment:: Surgical History: Cholecystectomy, left knee surgery, cardiac stent, bilateral cataract surgery, right ankle surgery Family History: Cancer, diabetes, coronary artery disease, hypertension, hyperlipidemia Social History: Tobacco: Former smoker Alcohol: Denies Caffeine: Denies Drugs: Never Allergies: No known drug allergies Code Status: Full Assessment / Plan: Anemia, acute, macrocytic. Patient has known history of diverticulosis. Mimi gonzalez received 2 units packed red blood cells on January 01, 2021. Hemoglobin level every 6 hours. Fecal occult blood negative. Check serum ferritin, iron panel, TSH, free T4, B12, folate, LDH, erythropoietin level, reticulocyte count, PT/INR, PTT. Protonix 40 mg IV twice daily pursue fate 1 g p.o. every 6 hours. When a bed becomes available in [facility], we will transfer the patient for evaluation for gastroenterology Diverticulosis Hypernatremia. Will monitor sodium levels intermittently Hypokalemia. Will monitor potassium levels intermittently and supplement as necessary Gout Depression Ammonia. Azithromycin 500 mg IV daily plus Rocephin 1 g IV daily COPD Coronary artery disease, status post CT, status post [place] Hyperlipidemia Hypertension Obesity. Patient counseled regarding lifestyle modification BPH Spinal stenosis Atrial fibrillation Attention deficit disorder Anxiety Seasonal allergies Insomnia Arthritis DVT prophylaxis. Bilateral SCD Disposition: I will attempt to transfer the patient as soon as a bed becomes available in [facility] for evaluation by gastroenterology. At the time of admission, the patient's home medications were pending input to the EMR/DHR system. Once they are input, they will be reviewed and reconciled END OF DOCTOR EMAMIS HISTORY AND PHYSICAL / CONSULTATION NOTE
[2021-01-01 22:02] LABS: PTT,PARTIAL THROMBOPLSTIN TIME 24.9 SEC (22.0-34.0)
[2021-01-01] MEDS: Pantoprazole 40 MG Vial IVPUSH SCH (22:11)
[2021-01-01] MEDS ORDERED: Diazepam 5 MG Tab PO PRN (23:28)
[2021-01-02] MEDS: Albuterol 6.7 GM Inhaler INH PRN ×2 (03:04→08:06)
[2021-01-02 04:30] LABS: ANION GAP 13.6 mEq/L (7-13); CHLORIDE,CL 112 mmol/L (98-107); SODIUM,NA 148 mmol/L (136-145)
[2021-01-02] MEDS ORDERED: Sodium Chloride 0.45% 1,000 ML IV SCH (07:15)
--- NOTE | 2021-01-02 07:22 | PCM.PN ---
- General Info Date of Service: 01/02/21 Subjective Update: The patient indicates that he has developed a cough but this is not abnormal for him. Overnight he denies fever, rigors, nausea, vomiting, wheeze, abdominal alfreda n, chest pain, dyspnea. He states overall he is feeling more energetic since receiving blood transfusions. Patient denies lightheadedness or dizziness. I explained to the patient his current medical condition and plan of care and I have answered all of his questions - Review of Systems General: Reports: No Symptoms HEENT: Reports: No Symptoms Pulmonary: Reports: No Symptoms Cardiovascular: Reports: No Symptoms Gastrointestinal: Reports: No Symptoms Genitourinary: Reports: No Symptoms Musculoskeletal: Reports: No Symptoms Skin: Reports: No Symptoms Neurological: Reports: No Symptoms Psychiatric: Reports: No Symptoms - Patient Data Vitals - Most Recent: Last Vital Signs Temp 97.3 F 01/02/21 06:19 Pulse 73 01/02/21 06:19 Resp 16 01/02/21 06:19 BP 102/58 L 01/02/21 06:19 Pulse Ox 100 01/02/21 06:19 Weight - Most Recent: 222 lb 6.4 oz I&O - Last 24 Hours: Intake & Output 01/01/21 01/02/21 01/02/21 22:59 06:59 14:59 Intake Total 753 680 Output Total 250 Balance 753 430 Lab Results Last 24 Hours: Laboratory Results - last 24 hr 01/01/21 01/01/21 01/01/21 Range/Units 18:10 18:10 18:10 WBC 3.3 L (5.0-10.0) 10^3/uL RBC 1.32 L (4.6-6.2) 10^6/uL Hgb 4.8 L* D (14.0-18.0) g/dL Hct 15.0 L* (40.0-54.0) % MCV 113.6 H D (80-100) fL MCH 36.4 H (27.0-34.0) pg MCHC 32.0 L (33.0-35.0) g/dL Plt Count 167 (150-450) 10^3/uL Neut % (Auto) 37.6 L (42.2-75.2) % Lymph % (Auto) 37.8 (20.5-50.1) % [place] % (Auto) 20.0 H (2-8) % Eos % (Auto) 3.7 H (1.0-3.0) % Baso % (Auto) 0.9 (0.0-1.0) % Percent Retic (0.5-1.5) % PT (9.0-12.0) SEC INR (0.9-1.2) APTT (22.0-34.0) SEC Sodium 146 H (136-145) mmol/L Potassium 3.4 L (3.5-5.1) mmol/L Chloride 109 H (98-107) mmol/L Carbon Dioxide 29 (21-32) mmol/L Anion Gap 11.4 (7-13) mEq/L BUN 14 (7-18) mg/dL Creatinine 0.94 (0.70-1.30) mg/dL Est Cr Clr Drug Dosing 75.50 mL/min Estimated GFR (MDRD) > 60 BUN/Creatinine Ratio (No establ ref range) Glucose 125 H (70-99) mg/dL Lactic Acid 1.6 (0.4-2.0) mmol/L Calcium 8.1 L (8.5-10.1) mg/dL Iron (65-175) ug/dL TIBC (250-450) ug/dL % Saturation (20.0-50.0) % Ferritin (26-388) mg/mL Total Bilirubin (0.2-1.0) mg/dL AST (15-37) U/L ALT (16-63) U/L Alkaline Phosphatase (46-116) U/L Lactate Dehydrogenase (85-227) U/L Troponin I High Sens 13 (<=76) pg/mL B-Natriuretic Peptide 137 H (0-100) pg/ml Total Protein (6.4-8.2) g/dL Albumin (3.4-5.0) g/dL Globulin Albumin/Globulin Ratio PSA Screen (0.00-4.00) ng/mL Vitamin B12 (193-986) pg/mL Folate (8.6-58.9) ng/mL Free T4 (0.76-1.46) ng/dL TSH, Ultra Sensitive (0.36-3.74) uIU/mL Urine Color (YELLOW) Urine Appearance (CLEAR) Urine pH (5.0-9.0) Ur Specific [place] (1.005-1.030) Urine Protein (NEGATIVE) Urine Glucose (UA) (NEGATIVE) Urine Ketones (NEGATIVE) Urine Occult Blood (NEGATIVE) Urine Nitrite (NEGATIVE) Urine Bilirubin (NEGATIVE) Urine Urobilinogen (0.2-1.0) mg/dL Ur Leukocyte Esterase (NEGATIVE) Urine RBC /HPF Urine WBC (0-5/HPF) /HPF Ur Epithelial Cells (NOT SEEN) /HPF Urine Bacteria (0-FEW/HPF) /HPF SARS-CoV-2 RNA (JENA) (NEGATIVE) Blood Type Gel Antibody Screen Crossmatch 01/01/21 01/01/21 01/01/21 Range/Units 18:10 18:10 18:10 WBC (5.0-10.0) 10^3/uL RBC (4.6-6.2) 10^6/uL Hgb (14.0-18.0) g/dL Hct (40.0-54.0) % MCV (80-100) fL MCH (27.0-34.0) pg MCHC (33.0-35.0) g/dL Plt Count (150-450) 10^3/uL Neut % (Auto) (42.2-75.2) % Lymph % (Auto) (20.5-50.1) % [place] % (Auto) (2-8) % Eos % (Auto) (1.0-3.0) % Baso % (Auto) (0.0-1.0) % Percent Retic (0.5-1.5) % PT 10.8 (9.0-12.0) SEC INR 1.1 (0.9-1.2) APTT 24.9 (22.0-34.0) SEC Sodium (136-145) mmol/L Potassium (3.5-5.1) mmol/L Chloride (98-107) mmol/L Carbon Dioxide (21-32) mmol/L Anion Gap (7-13) mEq/L BUN (7-18) mg/dL Creatinine (0.70-1.30) mg/dL Est Cr Clr Drug Dosing mL/min Estimated GFR (MDRD) BUN/Creatinine Ratio (No establ ref range) Glucose (70-99) mg/dL Lactic Acid (0.4-2.0) mmol/L Calcium (8.5-10.1) mg/dL Iron 216 H (65-175) ug/dL TIBC 231 L (250-450) ug/dL % Saturation 93.5 H (20.0-50.0) % Ferritin 1250 H (26-388) mg/mL Total Bilirubin (0.2-1.0) mg/dL AST (15-37) U/L ALT (16-63) U/L Alkaline Phosphatase (46-116) U/L Lactate Dehydrogenase (85-227) U/L Troponin I High Sens (<=76) pg/mL B-Natriuretic Peptide (0-100) pg/ml Total Protein (6.4-8.2) g/dL Albumin (3.4-5.0) g/dL Globulin Albumin/Globulin Ratio PSA Screen (0.00-4.00) ng/mL Vitamin B12 (193-986) pg/mL Folate (8.6-58.9) ng/mL Free T4 (0.76-1.46) ng/dL TSH, Ultra Sensitive (0.36-3.74) uIU/mL Urine Color (YELLOW) Urine Appearance (CLEAR) Urine pH (5.0-9.0) Ur Specific [place] (1.005-1.030) Urine Protein (NEGATIVE) Urine Glucose (UA) (NEGATIVE) Urine Ketones (NEGATIVE) Urine Occult Blood (NEGATIVE) Urine Nitrite (NEGATIVE) Urine Bilirubin (NEGATIVE) Urine Urobilinogen (0.2-1.0) mg/dL Ur Leukocyte Esterase (NEGATIVE) Urine RBC /HPF Urine WBC (0-5/HPF) /HPF Ur Epithelial Cells (NOT SEEN) /HPF Urine Bacteria (0-FEW/HPF) /HPF SARS-CoV-2 RNA (JENA) (NEGATIVE) Blood Type O POSITIVE Gel Antibody Screen Negative Crossmatch See Detail 01/01/21 01/01/21 01/02/21 Range/Units 18:10 18:30 02:55 WBC (5.0-10.0) 10^3/uL RBC (4.6-6.2) 10^6/uL Hgb (14.0-18.0) g/dL Hct (40.0-54.0) % MCV (80-100) fL MCH (27.0-34.0) pg MCHC (33.0-35.0) g/dL Plt Count (150-450) 10^3/uL Neut % (Auto) (42.2-75.2) % Lymph % (Auto) (20.5-50.1) % [place] % (Auto) (2-8) % Eos % (Auto) (1.0-3.0) % Baso % (Auto) (0.0-1.0) % Percent Retic (0.5-1.5) % PT (9.0-12.0) SEC INR (0.9-1.2) APTT (22.0-34.0) SEC Sodium (136-145) mmol/L Potassium (3.5-5.1) mmol/L Chloride (98-107) mmol/L Carbon Dioxide (21-32) mmol/L Anion Gap (7-13) mEq/L BUN (7-18) mg/dL Creatinine (0.70-1.30) mg/dL Est Cr Clr Drug Dosing mL/min Estimated GFR (MDRD) BUN/Creatinine Ratio (No establ ref range) Glucose (70-99) mg/dL Lactic Acid (0.4-2.0) mmol/L Calcium (8.5-10.1) mg/dL Iron (65-175) ug/dL TIBC (250-450) ug/dL % Saturation (20.0-50.0) % Ferritin (26-388) mg/mL Total Bilirubin (0.2-1.0) mg/dL AST (15-37) U/L ALT (16-63) U/L Alkaline Phosphatase (46-116) U/L Lactate Dehydrogenase 160 (85-227) U/L Troponin I High Sens (<=76) pg/mL B-Natriuretic Peptide (0-100) pg/ml Total Protein (6.4-8.2) g/dL Albumin (3.4-5.0) g/dL Globulin Albumin/Globulin Ratio PSA Screen 7.59 H (0.00-4.00) ng/mL Vitamin B12 974 (193-986) pg/mL Folate 6.0 L (8.6-58.9) ng/mL Free T4 1.04 (0.76-1.46) ng/dL TSH, Ultra Sensitive 1.58 (0.36-3.74) uIU/mL Urine Color Yellow (YELLOW) Urine Appearance Clear (CLEAR) Urine pH 6.0 (5.0-9.0) Ur Specific [place] 1.020 (1.005-1.030) Urine Protein Negative (NEGATIVE) Urine Glucose (UA) Negative (NEGATIVE) Urine Ketones Negative (NEGATIVE) Urine Occult Blood Negative (NEGATIVE) Urine Nitrite Negative (NEGATIVE) Urine Bilirubin Negative (NEGATIVE) Urine Urobilinogen 4.0 H (0.2-1.0) mg/dL Ur Leukocyte Esterase Negative (NEGATIVE) Urine RBC 0-5 /HPF Urine WBC 0-5 (0-5/HPF) /HPF Ur Epithelial Cells Occasional (NOT SEEN) /HPF Urine Bacteria Few (0-FEW/HPF) /HPF SARS-CoV-2 RNA (JENA) Negative (NEGATIVE) Blood Type Gel Antibody Screen Crossmatch 01/02/21 01/02/21 01/02/21 Range/Units 03:55 03:55 03:55 WBC (5.0-10.0) 10^3/uL RBC (4.6-6.2) 10^6/uL Hgb 6.5 L* D (14.0-18.0) g/dL Hct (40.0-54.0) % MCV (80-100) fL MCH (27.0-34.0) pg MCHC (33.0-35.0) g/dL Plt Count (150-450) 10^3/uL Neut % (Auto) (42.2-75.2) % Lymph % (Auto) (20.5-50.1) % [place] % (Auto) (2-8) % Eos % (Auto) (1.0-3.0) % Baso % (Auto) (0.0-1.0) % Percent Retic 1 (0.5-1.5) % PT (9.0-12.0) SEC INR (0.9-1.2) APTT (22.0-34.0) SEC Sodium 148 H (136-145) mmol/L Potassium 3.6 (3.5-5.1) mmol/L Chloride 112 H (98-107) mmol/L Carbon Dioxide 26 (21-32) mmol/L Anion Gap 13.6 H (7-13) mEq/L BUN 15 (7-18) mg/dL Creatinine 0.87 (0.70-1.30) mg/dL Est Cr Clr Drug Dosing 81.58 mL/min Estimated GFR (MDRD) > 60 BUN/Creatinine Ratio 17.2 (No establ ref range) Glucose 104 H (70-99) mg/dL Lactic Acid (0.4-2.0) mmol/L Calcium 7.8 L (8.5-10.1) mg/dL Iron (65-175) ug/dL TIBC (250-450) ug/dL % Saturation (20.0-50.0) % Ferritin (26-388) mg/mL Total Bilirubin 0.9 (0.2-1.0) mg/dL AST 12 L (15-37) U/L ALT 15 L (16-63) U/L Alkaline Phosphatase 105 (46-116) U/L Lactate Dehydrogenase (85-227) U/L Troponin I High Sens (<=76) pg/mL B-Natriuretic Peptide (0-100) pg/ml Total Protein 5.4 L (6.4-8.2) g/dL Albumin 2.9 L (3.4-5.0) g/dL Globulin 2.5 Albumin/Globulin Ratio 1.16 PSA Screen (0.00-4.00) ng/mL Vitamin B12 (193-986) pg/mL Folate (8.6-58.9) ng/mL Free T4 (0.76-1.46) ng/dL TSH, Ultra Sensitive (0.36-3.74) uIU/mL Urine Color (YELLOW) Urine Appearance (CLEAR) Urine pH (5.0-9.0) Ur Specific [place] (1.005-1.030) Urine Protein (NEGATIVE) Urine Glucose (UA) (NEGATIVE) Urine Ketones (NEGATIVE) Urine Occult Blood (NEGATIVE) Urine Nitrite (NEGATIVE) Urine Bilirubin (NEGATIVE) Urine Urobilinogen (0.2-1.0) mg/dL Ur Leukocyte Esterase (NEGATIVE) Urine RBC /HPF Urine WBC (0-5/HPF) /HPF Ur Epithelial Cells (NOT SEEN) /HPF Urine Bacteria (0-FEW/HPF) /HPF SARS-CoV-2 RNA (JENA) (NEGATIVE) Blood Type Gel Antibody Screen Crossmatch [place] Results Last 24 Hours: Microbiology 01/01/21 18:30 Stool Occult Blood (RONAN) - Final Stool / Feces NEGATIVE OCCULT BLOOD REFERENCE RANGE: NEGATIVE Med Orders - Current: Current Medications Acetaminophen (Acetaminophen 325 Mg Tab) 650 mg PO Q4H PRN PRN Reason: Pain (Mild 1-3)/fever Albuterol (Albuterol 6.7 Gm Inhaler) 0 gm INH Q4H PRN PRN Reason: Shortness of Breath Last Admin: 01/02/21 03:04 Dose: 2 puff Documented by: Diazepam (Diazepam 5 Mg Tab) 5 mg PO BEDTIME PRN PRN Reason: Sleep Folic Acid (Folic Acid 1 Mg Tab) 1 mg PO DAILY [facility] Azithromycin 500 mg/ Sodium (Chloride) 250 mls @ 250 mls/hr IV BEDTIME REFUGIO Last Admin: 01/01/21 23:20 Dose: 250 mls/hr Documented by: Ceftriaxone Sodium 1 gm/ (Sodium Chloride) 50 mls @ 100 mls/hr IV Q24H REFUGIO Last Admin: 01/01/21 22:44 Dose: 100 mls/hr Documented by: Sodium Chloride (Sodium Chloride 0.45%) 1,000 mls @ 50 mls/hr IV ASDIRECTED REFUGIO Montelukast Sodium (Montelukast 10 Mg Tab) 10 mg PO DAILY [facility] Non-Formulary Medication (Fluticasone/Vilanterol) 1 puff INH DAILY [facility] Non-Formulary Medication (Roflumilast [Daliresp]) 1 tab PO DAILY [facility] Non-Formulary Medication (Umeclidinium [place] [Incruse Ellipta*]) 1 puff INH DAILY [facility] Ondansetron HCl (Ondansetron 4 Mg/2 Ml Sdv) 4 mg IVPUSH Q4H PRN PRN Reason: Nausea/Vomiting Pantoprazole Sodium (Pantoprazole 40 Mg Vial) 40 mg IVPUSH Q12H [facility] Last Admin: 01/01/21 22:11 Dose: 40 mg Documented by: Sodium Chloride (Sodium Chloride 0.9% 10 Ml Syringe) 10 ml FLUSH ASDIRECTED PRN PRN Reason: Keep Vein Open Sucralfate (Sucralfate 1 Gm Tab) 1 gm PO QID [facility] Tamsulosin HCl (Tamsulosin 0.4 Mg Cap.Er) 0.4 mg PO BEDTIME REFUGIO Venlafaxine HCl (Venlafaxine 150 Mg Cap.Er) 150 mg PO DAILY [facility] Discontinued Medications Iopamidol (Iopamidol 612 Mg/Ml 100 Ml Bottle) 100 ml IVPUSH ONETIME ONE Stop: 01/01/21 19:26 Last Admin: 01/01/21 19:27 Dose: 100 ml Documented by: Potassium Chloride (Potassium Chloride 10 Meq Tab.Er) 40 meq PO ONETIME ONE Stop: 01/01/21 21:23 Last Admin: 01/01/21 22:11 Dose: 40 meq Documented by: - Exam General: Alert, Oriented HEENT: Pupils Equal, Pupils Reactive, EOMI, Mucous Membr. Moist/[place] Neck: Supple Lungs: Clear to Auscultation, Normal Respiratory Effort Cardiovascular: Regular Rate, Regular Rhythm GI/Abdominal Exam: Normal Bowel Sounds, Soft, Non-Tender, No Organomegaly, No Distention, No Abnormal Bruit, No Mass, Pelvis Stable Back Exam: Normal Inspection, Full Range of Motion Extremities: Normal Inspection, Normal Range of Motion, Non-Tender, No Pedal Edema, Normal Capillary Refill Peripheral Pulses: 2+: Carotid (L), Carotid (R), Brachial (L), Brachial (R), Radial (L), Radial (R), Femoral (L), Femoral (R), Popliteal (L), Popliteal (R), Posterior Tibial (L), Posterior Tibial (R), Dorsalis Pedis (L), Dorsalis Pedis (R) Skin: Warm, Dry, Intact Wound/Incisions: Healing Well Neurological: No New Focal Deficit Psy/Mental Status: Alert, Normal Affect, Normal Mood - Patient Data Lab Results Last 24 hrs: Laboratory Results - last 24 hr 01/01/21 01/01/21 01/01/21 Range/Units 18:10 18:10 18:10 WBC 3.3 L (5.0-10.0) 10^3/uL RBC 1.32 L (4.6-6.2) 10^6/uL Hgb 4.8 L* D (14.0-18.0) g/dL Hct 15.0 L* (40.0-54.0) % MCV 113.6 H D (80-100) fL MCH 36.4 H (27.0-34.0) pg MCHC 32.0 L (33.0-35.0) g/dL Plt Count 167 (150-450) 10^3/uL Neut % (Auto) 37.6 L (42.2-75.2) % Lymph % (Auto) 37.8 (20.5-50.1) % [place] % (Auto) 20.0 H (2-8) % Eos % (Auto) 3.7 H (1.0-3.0) % Baso % (Auto) 0.9 (0.0-1.0) % Percent Retic (0.5-1.5) % PT (9.0-12.0) SEC INR (0.9-1.2) APTT (22.0-34.0) SEC Sodium 146 H (136-145) mmol/L Potassium 3.4 L (3.5-5.1) mmol/L Chloride 109 H (98-107) mmol/L Carbon Dioxide 29 (21-32) mmol/L Anion Gap 11.4 (7-13) mEq/L BUN 14 (7-18) mg/dL Creatinine 0.94 (0.70-1.30) mg/dL Est Cr Clr Drug Dosing 75.50 mL/min Estimated GFR (MDRD) > 60 BUN/Creatinine Ratio (No establ ref range) Glucose 125 H (70-99) mg/dL Lactic Acid 1.6 (0.4-2.0) mmol/L Calcium 8.1 L (8.5-10.1) mg/dL Iron (65-175) ug/dL TIBC (250-450) ug/dL % Saturation (20.0-50.0) % Ferritin (26-388) mg/mL Total Bilirubin (0.2-1.0) mg/dL AST (15-37) U/L ALT (16-63) U/L Alkaline Phosphatase (46-116) U/L Lactate Dehydrogenase (85-227) U/L Troponin I High Sens 13 (<=76) pg/mL B-Natriuretic Peptide 137 H (0-100) pg/ml Total Protein (6.4-8.2) g/dL Albumin (3.4-5.0) g/dL Globulin Albumin/Globulin Ratio PSA Screen (0.00-4.00) ng/mL Vitamin B12 (193-986) pg/mL Folate (8.6-58.9) ng/mL Free T4 (0.76-1.46) ng/dL TSH, Ultra Sensitive (0.36-3.74) uIU/mL Urine Color (YELLOW) Urine Appearance (CLEAR) Urine pH (5.0-9.0) Ur Specific [place] (1.005-1.030) Urine Protein (NEGATIVE) Urine Glucose (UA) (NEGATIVE) Urine Ketones (NEGATIVE) Urine Occult Blood (NEGATIVE) Urine Nitrite (NEGATIVE) Urine Bilirubin (NEGATIVE) Urine Urobilinogen (0.2-1.0) mg/dL Ur Leukocyte Esterase (NEGATIVE) Urine RBC /HPF Urine WBC (0-5/HPF) /HPF Ur Epithelial Cells (NOT SEEN) /HPF Urine Bacteria (0-FEW/HPF) /HPF SARS-CoV-2 RNA (JENA) (NEGATIVE) Blood Type Gel Antibody Screen Crossmatch 01/01/21 01/01/21 01/01/21 Range/Units 18:10 18:10 18:10 WBC (5.0-10.0) 10^3/uL RBC (4.6-6.2) 10^6/uL Hgb (14.0-18.0) g/dL Hct (40.0-54.0) % MCV (80-100) fL MCH (27.0-34.0) pg MCHC (33.0-35.0) g/dL Plt Count (150-450) 10^3/uL Neut % (Auto) (42.2-75.2) % Lymph % (Auto) (20.5-50.1) % [place] % (Auto) (2-8) % Eos % (Auto) (1.0-3.0) % Baso % (Auto) (0.0-1.0) % Percent Retic (0.5-1.5) % PT 10.8 (9.0-12.0) SEC INR 1.1 (0.9-1.2) APTT 24.9 (22.0-34.0) SEC Sodium (136-145) mmol/L Potassium (3.5-5.1) mmol/L Chloride (98-107) mmol/L Carbon Dioxide (21-32) mmol/L Anion Gap (7-13) mEq/L BUN (7-18) mg/dL Creatinine (0.70-1.30) mg/dL Est Cr Clr Drug Dosing mL/min Estimated GFR (MDRD) BUN/Creatinine Ratio (No establ ref range) Glucose (70-99) mg/dL Lactic Acid (0.4-2.0) mmol/L Calcium (8.5-10.1) mg/dL Iron 216 H (65-175) ug/dL TIBC 231 L (250-450) ug/dL % Saturation 93.5 H (20.0-50.0) % Ferritin 1250 H (26-388) mg/mL Total Bilirubin (0.2-1.0) mg/dL AST (15-37) U/L ALT (16-63) U/L Alkaline Phosphatase (46-116) U/L Lactate Dehydrogenase (85-227) U/L Troponin I High Sens (<=76) pg/mL B-Natriuretic Peptide (0-100) pg/ml Total Protein (6.4-8.2) g/dL Albumin (3.4-5.0) g/dL Globulin Albumin/Globulin Ratio PSA Screen (0.00-4.00) ng/mL Vitamin B12 (193-986) pg/mL Folate (8.6-58.9) ng/mL Free T4 (0.76-1.46) ng/dL TSH, Ultra Sensitive (0.36-3.74) uIU/mL Urine Color (YELLOW) Urine Appearance (CLEAR) Urine pH (5.0-9.0) Ur Specific [place] (1.005-1.030) Urine Protein (NEGATIVE) Urine Glucose (UA) (NEGATIVE) Urine Ketones (NEGATIVE) Urine Occult Blood (NEGATIVE) Urine Nitrite (NEGATIVE) Urine Bilirubin (NEGATIVE) Urine Urobilinogen (0.2-1.0) mg/dL Ur Leukocyte Esterase (NEGATIVE) Urine RBC /HPF Urine WBC (0-5/HPF) /HPF Ur Epithelial Cells (NOT SEEN) /HPF Urine Bacteria (0-FEW/HPF) /HPF SARS-CoV-2 RNA (JENA) (NEGATIVE) Blood Type O POSITIVE Gel Antibody Screen Negative Crossmatch See Detail 01/01/21 01/01/21 01/02/21 Range/Units 18:10 18:30 02:55 WBC (5.0-10.0) 10^3/uL RBC (4.6-6.2) 10^6/uL Hgb (14.0-18.0) g/dL Hct (40.0-54.0) % MCV (80-100) fL MCH (27.0-34.0) pg MCHC (33.0-35.0) g/dL Plt Count (150-450) 10^3/uL Neut % (Auto) (42.2-75.2) % Lymph % (Auto) (20.5-50.1) % [place] % (Auto) (2-8) % Eos % (Auto) (1.0-3.0) % Baso % (Auto) (0.0-1.0) % Percent Retic (0.5-1.5) % PT (9.0-12.0) SEC INR (0.9-1.2) APTT (22.0-34.0) SEC Sodium (136-145) mmol/L Potassium (3.5-5.1) mmol/L Chloride (98-107) mmol/L Carbon Dioxide (21-32) mmol/L Anion Gap (7-13) mEq/L BUN (7-18) mg/dL Creatinine (0.70-1.30) mg/dL Est Cr Clr Drug Dosing mL/min Estimated GFR (MDRD) BUN/Creatinine Ratio (No establ ref range) Glucose (70-99) mg/dL Lactic Acid (0.4-2.0) mmol/L Calcium (8.5-10.1) mg/dL Iron (65-175) ug/dL TIBC (250-450) ug/dL % Saturation (20.0-50.0) % Ferritin (26-388) mg/mL Total Bilirubin (0.2-1.0) mg/dL AST (15-37) U/L ALT (16-63) U/L Alkaline Phosphatase (46-116) U/L Lactate Dehydrogenase 160 (85-227) U/L Troponin I High Sens (<=76) pg/mL B-Natriuretic Peptide (0-100) pg/ml Total Protein (6.4-8.2) g/dL Albumin (3.4-5.0) g/dL Globulin Albumin/Globulin Ratio PSA Screen 7.59 H (0.00-4.00) ng/mL Vitamin B12 974 (193-986) pg/mL Folate 6.0 L (8.6-58.9) ng/mL Free T4 1.04 (0.76-1.46) ng/dL TSH, Ultra Sensitive 1.58 (0.36-3.74) uIU/mL Urine Color Yellow (YELLOW) Urine Appearance Clear (CLEAR) Urine pH 6.0 (5.0-9.0) Ur Specific [place] 1.020 (1.005-1.030) Urine Protein Negative (NEGATIVE) Urine Glucose (UA) Negative (NEGATIVE) Urine Ketones Negative (NEGATIVE) Urine Occult Blood Negative (NEGATIVE) Urine Nitrite Negative (NEGATIVE) Urine Bilirubin Negative (NEGATIVE) Urine Urobilinogen 4.0 H (0.2-1.0) mg/dL Ur Leukocyte Esterase Negative (NEGATIVE) Urine RBC 0-5 /HPF Urine WBC 0-5 (0-5/HPF) /HPF Ur Epithelial Cells Occasional (NOT SEEN) /HPF Urine Bacteria Few (0-FEW/HPF) /HPF SARS-CoV-2 RNA (JENA) Negative (NEGATIVE) Blood Type Gel Antibody Screen Crossmatch 01/02/21 01/02/21 01/02/21 Range/Units 03:55 03:55 03:55 WBC (5.0-10.0) 10^3/uL RBC (4.6-6.2) 10^6/uL Hgb 6.5 L* D (14.0-18.0) g/dL Hct (40.0-54.0) % MCV (80-100) fL MCH (27.0-34.0) pg MCHC (33.0-35.0) g/dL Plt Count (150-450) 10^3/uL Neut % (Auto) (42.2-75.2) % Lymph % (Auto) (20.5-50.1) % [place] % (Auto) (2-8) % Eos % (Auto) (1.0-3.0) % Baso % (Auto) (0.0-1.0) % Percent Retic 1 (0.5-1.5) % PT (9.0-12.0) SEC INR (0.9-1.2) APTT (22.0-34.0) SEC Sodium 148 H (136-145) mmol/L Potassium 3.6 (3.5-5.1) mmol/L Chloride 112 H (98-107) mmol/L Carbon Dioxide 26 (21-32) mmol/L Anion Gap 13.6 H (7-13) mEq/L BUN 15 (7-18) mg/dL Creatinine 0.87 (0.70-1.30) mg/dL Est Cr Clr Drug Dosing 81.58 mL/min Estimated GFR (MDRD) > 60 BUN/Creatinine Ratio 17.2 (No establ ref range) Glucose 104 H (70-99) mg/dL Lactic Acid (0.4-2.0) mmol/L Calcium 7.8 L (8.5-10.1) mg/dL Iron (65-175) ug/dL TIBC (250-450) ug/dL % Saturation (20.0-50.0) % Ferritin (26-388) mg/mL Total Bilirubin 0.9 (0.2-1.0) mg/dL AST 12 L (15-37) U/L ALT 15 L (16-63) U/L Alkaline Phosphatase 105 (46-116) U/L Lactate Dehydrogenase (85-227) U/L Troponin I High Sens (<=76) pg/mL B-Natriuretic Peptide (0-100) pg/ml Total Protein 5.4 L (6.4-8.2) g/dL Albumin 2.9 L (3.4-5.0) g/dL Globulin 2.5 Albumin/Globulin Ratio 1.16 PSA Screen (0.00-4.00) ng/mL Vitamin B12 (193-986) pg/mL Folate (8.6-58.9) ng/mL Free T4 (0.76-1.46) ng/dL TSH, Ultra Sensitive (0.36-3.74) uIU/mL Urine Color (YELLOW) Urine Appearance (CLEAR) Urine pH (5.0-9.0) Ur Specific [place] (1.005-1.030) Urine Protein (NEGATIVE) Urine Glucose (UA) (NEGATIVE) Urine Ketones (NEGATIVE) Urine Occult Blood (NEGATIVE) Urine Nitrite (NEGATIVE) Urine Bilirubin (NEGATIVE) Urine Urobilinogen (0.2-1.0) mg/dL Ur Leukocyte Esterase (NEGATIVE) Urine RBC /HPF Urine WBC (0-5/HPF) /HPF Ur Epithelial Cells (NOT SEEN) /HPF Urine Bacteria (0-FEW/HPF) /HPF SARS-CoV-2 RNA (JENA) (NEGATIVE) Blood Type Gel Antibody Screen Crossmatch Result Diagrams: 01/02/21 03:55 01/02/21 03:55 Ronan Results Last 24 hrs: Microbiology 01/01/21 18:30 Stool Occult Blood (RONAN) - Final Stool / Feces NEGATIVE OCCULT BLOOD REFERENCE RANGE: NEGATIVE Sepsis Event Note - Evaluation Sepsis Screening Result: No Definite Risk - Focused Exam Vital Signs: Vital Signs Temp Temp Pulse Pulse Resp BP BP 01/02/21 06:19 97.3 F 73 16 102/58 L 01/02/21 05:00 98.7 F 72 14 112/51 L 01/02/21 02:45 98.3 F 75 14 112/56 L 01/02/21 00:37 97.8 F 72 16 117/57 L 01/01/21 22:49 97.8 F 66 16 113/49 L 01/01/21 22:05 98.7 F 73 16 99/47 L 01/01/21 22:03 98.5 F 72 14 121/56 L 01/01/21 21:48 97.1 F 87 18 129/55 L 92/59 L 01/01/21 20:48 98.8 F 76 18 124/49 L 01/01/21 20:33 99.5 F 78 18 132/51 L 01/01/21 20:19 98.6 F 79 18 132/50 L Pulse Ox 01/02/21 06:19 100 01/02/21 05:00 98 01/02/21 02:45 96 01/02/21 00:37 98 01/01/21 22:49 01/01/21 22:05 01/01/21 22:03 01/01/21 21:48 100 01/01/21 20:48 98 01/01/21 20:33 98 01/01/21 20:19 99 - Problem List Review Problem List Initiated/Reviewed/Updated: Yes - My Orders Last 24 Hours: My Active Orders 01/01/21 Dinner Consistent Carbohydrate Diet [DIET] 01/01/21 18:10 ERYTHROPOIETIN [REF] Routine 01/01/21 21:20 Blood Glucose Check, Bedside [RC] WITHMEALSANDBED Up With Assistance [RC] ASDIRECTED Vital Signs [RC] 08,12,16,20,00,04 Acetaminophen [TylenoL] 650 mg PO Q4H PRN Ondansetron [Zofran] 4 mg IVPUSH Q4H PRN Sodium Chloride 0.9% [Saline Flush] 10 ml FLUSH ASDIRECTED PRN Peripheral IV Insertion Adult [OM.PC] Routine Saline Lock Insert [OM.PC] Routine Resuscitation Status Routine 01/01/21 21:21 Antiembolic Devices [RC] 08,20 Sequential Compression Device [OM.PC] Per Unit Routine 01/01/21 21:22 Peripheral IV Care [RC] 01/01/21 21:30 Azithromycin [Zithromax] 500 mg Sodium Chloride 0.9% [Normal Saline (AdvBag)] 250 ml IV BEDTIME Pantoprazole [ProTONIX IV] 40 mg IVPUSH Q12H cefTRIAXone [Rocephin] 1 gm Sodium Chloride 0.9% [Normal Saline] 50 ml IV Q24H 01/01/21 23:28 diazePAM [Valium.] 5 mg PO BEDTIME PRN 01/02/21 00:00 Lab Instructions for Nurse [RC] Click to Edit 01/02/21 00:02 Lab Instructions for Nurse [RC] Click to Edit 01/02/21 02:57 RT Post Treatment Assessment [RC] Click to Edit RT Pre-Treatment Assessment [RC] Click to Edit Albuterol [Proventil HFA] 0 gm INH Q4H PRN 01/02/21 05:59 HGB [HEMOGLOBIN] [HEME] Q6H 01/02/21 07:15 Sodium Chloride 0.45% 1,000 ml IV ASDIRECTED 01/02/21 09:00 Fluticasone/Vilanterol 1 puff INH DAILY Folic Acid 1 mg PO DAILY Montelukast [Singulair] 10 mg PO DAILY Roflumilast [Daliresp] 1 tab PO DAILY Sucralfate [Carafate] 1 gm PO QID Umeclidinium [place] [Incruse Ellipta*] 1 puff INH DAILY Venlafaxine [Venlafaxine HCl ER] 150 mg PO DAILY 01/02/21 11:59 HGB [HEMOGLOBIN] [HEME] Q6H 01/02/21 17:59 HGB [HEMOGLOBIN] [HEME] Q6H 01/02/21 21:00 Tamsulosin [Flomax] 0.4 mg PO BEDTIME 01/02/21 23:59 HGB [HEMOGLOBIN] [HEME] Q6H 01/03/21 05:00 BASIC METABOLIC PANEL,BMP [CHEM] Routine 01/03/21 05:59 HGB [HEMOGLOBIN] [HEME] Q6H 01/03/21 11:59 HGB [HEMOGLOBIN] [HEME] Q6H 01/03/21 17:59 HGB [HEMOGLOBIN] [HEME] Q6H - Plan Plan:: Surgical History: Cholecystectomy, left knee surgery, cardiac stent, bilateral cataract surgery, right ankle surgery Family History: Cancer, diabetes, coronary artery disease, hypertension, hyperlipidemia Social History: Tobacco: Former smoker Alcohol: Denies Caffeine: Denies Drugs: Never Allergies: No known drug allergies Code Status: Full Assessment / Plan: Anemia, acute, macrocytic. Patient has known history of diverticulosis. Patient received 2 units packed red blood cells on January 01, 2021 and 1 unit of blood on January 02, 2021. Hemoglobin level every 6 hours. Fecal occult blood negative. Check serum ferritin, iron panel, TSH, free T4, B12, folate, LDH, erythropoietin level, reticulocyte count, PT/INR, PTT. Protonix 40 mg IV twice daily pursue fate 1 g p.o. every 6 hours. When a bed becomes available in [facility], we will transfer the patient for evaluation for gastroenterology Leukocytopenia. Will monitor white blood cell count intermittently Diverticulosis Hypernatremia. Will monitor sodium levels intermittently. IV half-normal saline at 50 mils per hour Hypokalemia. Will monitor potassium levels intermittently and supplement as necessary Gout Depression. Effexor XR 150 mg p.o. daily Ammonia. Azithromycin 500 mg IV daily plus Rocephin 1 g IV daily COPD. Brio Ellipta 200/25 mc inhalation daily plus singular 10 mg p.o. daily plus Daliresp 500 mcg p.o. daily plus Incruse Ellipta 1 inhalation daily Coronary artery disease, status post [place], status post [place] Hyperlipidemia Hypertension Obesity. Patient counseled regarding lifestyle modification BPH however patient has elevated PSA. Flomax 0.4 mg p.o. daily. Outpatient follow-up with urology Spinal stenosis Atrial fibrillation Attention deficit disorder Anxiety Seasonal allergies Insomnia Arthritis Folate deficiency. Folic acid 1 mg p.o. daily Iron overload, query hemochromatosis. Outpatient follow-up with gastroenterology upon discharge. [id number] gene mutation pending.H63D gene mutation pending. DVT prophylaxis. Bilateral SCD Disposition: I will attempt to transfer the patient as soon as a bed becomes available in [place] or [place] for evaluation by gastroenterology and, perhaps, hematology/oncology END OF DOCTOR EMAMIS HISTORY AND PHYSICAL / CONSULTATION NOTE
[2021-01-02] MEDS ORDERED: VILANTEROL INH SCH (09:00)
[2021-01-02] MEDS ORDERED: Venlafaxine 150 MG CAP.ER PO SCH (09:00)
[2021-01-02] MEDS ORDERED: Montelukast 10 MG Tab PO SCH (09:00)
[2021-01-02] MEDS ORDERED: Sucralfate 1 GM Tab PO SCH (09:00)
[2021-01-02] MEDS ORDERED: FLUTICASONE INH SCH (09:00)
[2021-01-02] MEDS ORDERED: Folic Acid 1 MG Tab PO SCH (09:00)
[2021-01-02] MEDS ORDERED: ROFLUMILAST PO SCH (09:00)
[2021-01-02] MEDS ORDERED: UMECLIDINIUM BROMIDE INH SCH (09:00)
[2021-01-02 09:35] LABS: HEMOGLOBIN A1C 5.7 % (<5.7)
--- NOTE | 2021-01-02 09:37 | PCM.DCSUM1 ---
Discharge Summary - Hospital Course Free Text/Narrative:: START OF DOCTOR EMAMIS DISCHARGE SUMMARY Date of Admission: January 01, 2021 Date of transfer: 9:32 AM on January 12, 2021 to [facility] care of Dr. Nielsen Primary Diagnosis: Anemia, query acute, macrocytic, fecal occult blood negative Secondary Diagnosis: Leukocytopenia Diverticulosis Hyponatremia Hypokalemia, status post treatment Gout Depression Pneumonia COPD Coronary artery disease, status post [place], status post stent Hyperlipidemia Hypertension Obesity BPH however patient has elevated PSA Spinal stenosis Atrial fibrillation Attention deficit disorder Anxiety Seasonal allergies Insomnia Arthritis Folate deficiency Iron overload, query hemochromatosis Consultations: None Condition on Discharge: Fair Disposition: The patient will be transferred to [facility] care of Dr. Nielsen. At the accepting hospital, the patient will require evaluation by hematology/oncology and likely gastroenterology as well. Upon transfer, or upon discharge after transfer, the patient will require evaluation by urology for diagnosis of elevated PSA Discharge Medications: Flonase: 50 mg/spray: 2 puffs in each nare daily as needed symptoms of seasonal allergies Repatha 140 mg subcutaneously every 2 weeks Proventil HFA: 90 yany respiratory: 2 puffs every 4 hours as needed shortness of breath/wheeze Rocephin 1 g IV daily started on January 02, 2021 for pneumonia Azithromycin 500 mg IV daily started January 02, 2021 for pneumonia Effexor XR 150 mg p.o. daily Incruse Ellipta 62.5 mcg inhaled daily Flomax 0.4 mg p.o. daily Sucralfate 1 g p.o. 4 times daily Daliresp 500 mcg p.o. daily Protonix 40 mg IV every 12 hours Singular 10 mg p.o. daily Folic acid 1 mg p.o. daily Valium 5 mg p.o. nightly Brio Ellipta: 200/25 mc inhalation daily END OF DOCTOR EMAMIS DISCHARGE SUMMARY - Discharge Data Discharge Date: 01/02/21 Discharge Disposition: DC/Tfer to Acute Hospital 02 Condition: Fair - Referral to Home Health Primary Care Physician: PCP None - Patient Instructions Diet: NPO Activity: Bedrest - Discharge Plan Home Medications: Home Meds Albuterol [Ventolin HFA] 2 puff INH Q4H PRN 11/03/18 [History] Fluticasone/Vilanterol [Breo Ellipta 200-25 MCG Inhalation Kit] 1 puff INH DAILY 11/03/18 [History] Roflumilast [Daliresp] 1 tab PO DAILY 11/03/18 [History] Umeclidinium [place] [Incruse Ellipta*] 1 puff INH DAILY 11/03/18 [History] Venlafaxine [Venlafaxine HCl ER] 1 cap PO DAILY 11/03/18 [History] Evolocumab [Repatha Sureclick] 140 mg [id number] [id number] 01/01/21 [History] Fluticasone Propionate [24 Hour Allergy] 2 pump NS DAILY PRN 01/01/21 [History] Montelukast [Singulair] 10 mg PO DAILY 01/01/21 [History] Tamsulosin [Flomax] 0.4 mg PO BEDTIME 01/01/21 [History] diazePAM [Valium.] 5 mg PO BEDTIME PRN 01/01/21 [History] Azithromycin [Zithromax] 500 mg IV BEDTIME vial 01/02/21 [Rx] Folic Acid 1 mg PO DAILY tablet 01/02/21 [Rx] Pantoprazole [ProTONIX IV] 40 mg IVPUSH Q12H vial 01/02/21 [Rx] Sucralfate [Carafate] 1 gm PO QID tablet 01/02/21 [Rx] cefTRIAXone [Rocephin] 1 gm IV Q24H vial 01/02/21 [Rx] Forms: ED Department Discharge Referrals: PCP,None [Primary Care Provider] - - Discharge Summary/Plan Comment DC Time >30 min.: Yes - Review of Systems General: Reports: No Symptoms HEENT: Reports: No Symptoms Pulmonary: Reports: No Symptoms Cardiovascular: Reports: No Symptoms Gastrointestinal: Reports: No Symptoms Genitourinary: Reports: No Symptoms Musculoskeletal: Reports: No Symptoms Skin: Reports: No Symptoms Neurological: Reports: No Symptoms Psychiatric: Reports: No Symptoms - Patient Data Vitals - Most Recent: Last Vital Signs Temp 98.2 F 01/02/21 08:00 Pulse 72 01/02/21 08:00 Resp 20 01/02/21 08:00 BP 125/57 L 01/02/21 08:00 Pulse Ox 96 01/02/21 08:00 Weight - Most Recent: 222 lb 6.4 oz I&O - Last 24 hours: Intake & Output 01/01/21 01/02/21 01/02/21 22:59 06:59 14:59 Intake Total 753 680 Output Total 250 Balance 753 430 Lab Results - Last 24 hrs: Laboratory Results - last 24 hr 01/01/21 01/01/21 01/01/21 Range/Units 18:10 18:10 18:10 WBC 3.3 L (5.0-10.0) 10^3/uL RBC 1.32 L (4.6-6.2) 10^6/uL Hgb 4.8 L* D (14.0-18.0) g/dL Hct 15.0 L* (40.0-54.0) % MCV 113.6 H D (80-100) fL MCH 36.4 H (27.0-34.0) pg MCHC 32.0 L (33.0-35.0) g/dL Plt Count 167 (150-450) 10^3/uL Neut % (Auto) 37.6 L (42.2-75.2) % Lymph % (Auto) 37.8 (20.5-50.1) % [place] % (Auto) 20.0 H (2-8) % Eos % (Auto) 3.7 H (1.0-3.0) % Baso % (Auto) 0.9 (0.0-1.0) % Percent Retic (0.5-1.5) % PT (9.0-12.0) SEC INR (0.9-1.2) APTT (22.0-34.0) SEC Sodium 146 H (136-145) mmol/L Potassium 3.4 L (3.5-5.1) mmol/L Chloride 109 H (98-107) mmol/L Carbon Dioxide 29 (21-32) mmol/L Anion Gap 11.4 (7-13) mEq/L BUN 14 (7-18) mg/dL Creatinine 0.94 (0.70-1.30) mg/dL Est Cr Clr Drug Dosing 75.50 mL/min Estimated GFR (MDRD) > 60 BUN/Creatinine Ratio (No establ ref range) Glucose 125 H (70-99) mg/dL POC Glucose (70-99) mg/dL Lactic Acid 1.6 (0.4-2.0) mmol/L Calcium 8.1 L (8.5-10.1) mg/dL Iron (65-175) ug/dL TIBC (250-450) ug/dL % Saturation (20.0-50.0) % Ferritin (26-388) mg/mL Total Bilirubin (0.2-1.0) mg/dL AST (15-37) U/L ALT (16-63) U/L Alkaline Phosphatase (46-116) U/L Lactate Dehydrogenase (85-227) U/L Troponin I High Sens 13 (<=76) pg/mL B-Natriuretic Peptide 137 H (0-100) pg/ml Total Protein (6.4-8.2) g/dL Albumin (3.4-5.0) g/dL Globulin Albumin/Globulin Ratio PSA Screen (0.00-4.00) ng/mL Vitamin B12 (193-986) pg/mL Folate (8.6-58.9) ng/mL Free T4 (0.76-1.46) ng/dL TSH, Ultra Sensitive (0.36-3.74) uIU/mL Urine Color (YELLOW) Urine Appearance (CLEAR) Urine pH (5.0-9.0) Ur Specific [place] (1.005-1.030) Urine Protein (NEGATIVE) Urine Glucose (UA) (NEGATIVE) Urine Ketones (NEGATIVE) Urine Occult Blood (NEGATIVE) Urine Nitrite (NEGATIVE) Urine Bilirubin (NEGATIVE) Urine Urobilinogen (0.2-1.0) mg/dL Ur Leukocyte Esterase (NEGATIVE) Urine RBC /HPF Urine WBC (0-5/HPF) /HPF Ur Epithelial Cells (NOT SEEN) /HPF Urine Bacteria (0-FEW/HPF) /HPF SARS-CoV-2 RNA (JENA) (NEGATIVE) Blood Type Gel Antibody Screen Crossmatch 01/01/21 01/01/21 01/01/21 Range/Units 18:10 18:10 18:10 WBC (5.0-10.0) 10^3/uL RBC (4.6-6.2) 10^6/uL Hgb (14.0-18.0) g/dL Hct (40.0-54.0) % MCV (80-100) fL MCH (27.0-34.0) pg MCHC (33.0-35.0) g/dL Plt Count (150-450) 10^3/uL Neut % (Auto) (42.2-75.2) % Lymph % (Auto) (20.5-50.1) % [place] % (Auto) (2-8) % Eos % (Auto) (1.0-3.0) % Baso % (Auto) (0.0-1.0) % Percent Retic (0.5-1.5) % PT 10.8 (9.0-12.0) SEC INR 1.1 (0.9-1.2) APTT 24.9 (22.0-34.0) SEC Sodium (136-145) mmol/L Potassium (3.5-5.1) mmol/L Chloride (98-107) mmol/L Carbon Dioxide (21-32) mmol/L Anion Gap (7-13) mEq/L BUN (7-18) mg/dL Creatinine (0.70-1.30) mg/dL Est Cr Clr Drug Dosing mL/min Estimated GFR (MDRD) BUN/Creatinine Ratio (No establ ref range) Glucose (70-99) mg/dL POC Glucose (70-99) mg/dL Lactic Acid (0.4-2.0) mmol/L Calcium (8.5-10.1) mg/dL Iron 216 H (65-175) ug/dL TIBC 231 L (250-450) ug/dL % Saturation 93.5 H (20.0-50.0) % Ferritin 1250 H (26-388) mg/mL Total Bilirubin (0.2-1.0) mg/dL AST (15-37) U/L ALT (16-63) U/L Alkaline Phosphatase (46-116) U/L Lactate Dehydrogenase (85-227) U/L Troponin I High Sens (<=76) pg/mL B-Natriuretic Peptide (0-100) pg/ml Total Protein (6.4-8.2) g/dL Albumin (3.4-5.0) g/dL Globulin Albumin/Globulin Ratio PSA Screen (0.00-4.00) ng/mL Vitamin B12 (193-986) pg/mL Folate (8.6-58.9) ng/mL Free T4 (0.76-1.46) ng/dL TSH, Ultra Sensitive (0.36-3.74) uIU/mL Urine Color (YELLOW) Urine Appearance (CLEAR) Urine pH (5.0-9.0) Ur Specific [place] (1.005-1.030) Urine Protein (NEGATIVE) Urine Glucose (UA) (NEGATIVE) Urine Ketones (NEGATIVE) Urine Occult Blood (NEGATIVE) Urine Nitrite (NEGATIVE) Urine Bilirubin (NEGATIVE) Urine Urobilinogen (0.2-1.0) mg/dL Ur Leukocyte Esterase (NEGATIVE) Urine RBC /HPF Urine WBC (0-5/HPF) /HPF Ur Epithelial Cells (NOT SEEN) /HPF Urine Bacteria (0-FEW/HPF) /HPF SARS-CoV-2 RNA (JENA) (NEGATIVE) Blood Type O POSITIVE Gel Antibody Screen Negative Crossmatch See Detail 01/01/21 01/01/21 01/02/21 Range/Units 18:10 18:30 02:55 WBC (5.0-10.0) 10^3/uL RBC (4.6-6.2) 10^6/uL Hgb (14.0-18.0) g/dL Hct (40.0-54.0) % MCV (80-100) fL MCH (27.0-34.0) pg MCHC (33.0-35.0) g/dL Plt Count (150-450) 10^3/uL Neut % (Auto) (42.2-75.2) % Lymph % (Auto) (20.5-50.1) % [place] % (Auto) (2-8) % Eos % (Auto) (1.0-3.0) % Baso % (Auto) (0.0-1.0) % Percent Retic (0.5-1.5) % PT (9.0-12.0) SEC INR (0.9-1.2) APTT (22.0-34.0) SEC Sodium (136-145) mmol/L Potassium (3.5-5.1) mmol/L Chloride (98-107) mmol/L Carbon Dioxide (21-32) mmol/L Anion Gap (7-13) mEq/L BUN (7-18) mg/dL Creatinine (0.70-1.30) mg/dL Est Cr Clr Drug Dosing mL/min Estimated GFR (MDRD) BUN/Creatinine Ratio (No establ ref range) Glucose (70-99) mg/dL POC Glucose (70-99) mg/dL Lactic Acid (0.4-2.0) mmol/L Calcium (8.5-10.1) mg/dL Iron (65-175) ug/dL TIBC (250-450) ug/dL % Saturation (20.0-50.0) % Ferritin (26-388) mg/mL Total Bilirubin (0.2-1.0) mg/dL AST (15-37) U/L ALT (16-63) U/L Alkaline Phosphatase (46-116) U/L Lactate Dehydrogenase 160 (85-227) U/L Troponin I High Sens (<=76) pg/mL B-Natriuretic Peptide (0-100) pg/ml Total Protein (6.4-8.2) g/dL Albumin (3.4-5.0) g/dL Globulin Albumin/Globulin Ratio PSA Screen 7.59 H (0.00-4.00) ng/mL Vitamin B12 974 (193-986) pg/mL Folate 6.0 L (8.6-58.9) ng/mL Free T4 1.04 (0.76-1.46) ng/dL TSH, Ultra Sensitive 1.58 (0.36-3.74) uIU/mL Urine Color Yellow (YELLOW) Urine Appearance Clear (CLEAR) Urine pH 6.0 (5.0-9.0) Ur Specific [place] 1.020 (1.005-1.030) Urine Protein Negative (NEGATIVE) Urine Glucose (UA) Negative (NEGATIVE) Urine Ketones Negative (NEGATIVE) Urine Occult Blood Negative (NEGATIVE) Urine Nitrite Negative (NEGATIVE) Urine Bilirubin Negative (NEGATIVE) Urine Urobilinogen 4.0 H (0.2-1.0) mg/dL Ur Leukocyte Esterase Negative (NEGATIVE) Urine RBC 0-5 /HPF Urine WBC 0-5 (0-5/HPF) /HPF Ur Epithelial Cells Occasional (NOT SEEN) /HPF Urine Bacteria Few (0-FEW/HPF) /HPF SARS-CoV-2 RNA (JENA) Negative (NEGATIVE) Blood Type Gel Antibody Screen Crossmatch 01/02/21 01/02/21 01/02/21 Range/Units 03:55 03:55 03:55 WBC (5.0-10.0) 10^3/uL RBC (4.6-6.2) 10^6/uL Hgb 6.5 L* D (14.0-18.0) g/dL Hct (40.0-54.0) % MCV (80-100) fL MCH (27.0-34.0) pg MCHC (33.0-35.0) g/dL Plt Count (150-450) 10^3/uL Neut % (Auto) (42.2-75.2) % Lymph % (Auto) (20.5-50.1) % [place] % (Auto) (2-8) % Eos % (Auto) (1.0-3.0) % Baso % (Auto) (0.0-1.0) % Percent Retic 1 (0.5-1.5) % PT (9.0-12.0) SEC INR (0.9-1.2) APTT (22.0-34.0) SEC Sodium 148 H (136-145) mmol/L Potassium 3.6 (3.5-5.1) mmol/L Chloride 112 H (98-107) mmol/L Carbon Dioxide 26 (21-32) mmol/L Anion Gap 13.6 H (7-13) mEq/L BUN 15 (7-18) mg/dL Creatinine 0.87 (0.70-1.30) mg/dL Est Cr Clr Drug Dosing 81.58 mL/min Estimated GFR (MDRD) > 60 BUN/Creatinine Ratio 17.2 (No establ ref range) Glucose 104 H (70-99) mg/dL POC Glucose (70-99) mg/dL Lactic Acid (0.4-2.0) mmol/L Calcium 7.8 L (8.5-10.1) mg/dL Iron (65-175) ug/dL TIBC (250-450) ug/dL % Saturation (20.0-50.0) % Ferritin (26-388) mg/mL Total Bilirubin 0.9 (0.2-1.0) mg/dL AST 12 L (15-37) U/L ALT 15 L (16-63) U/L Alkaline Phosphatase 105 (46-116) U/L Lactate Dehydrogenase (85-227) U/L Troponin I High Sens (<=76) pg/mL B-Natriuretic Peptide (0-100) pg/ml Total Protein 5.4 L (6.4-8.2) g/dL Albumin 2.9 L (3.4-5.0) g/dL Globulin 2.5 Albumin/Globulin Ratio 1.16 PSA Screen (0.00-4.00) ng/mL Vitamin B12 (193-986) pg/mL Folate (8.6-58.9) ng/mL Free T4 (0.76-1.46) ng/dL TSH, Ultra Sensitive (0.36-3.74) uIU/mL Urine Color (YELLOW) Urine Appearance (CLEAR) Urine pH (5.0-9.0) Ur Specific [place] (1.005-1.030) Urine Protein (NEGATIVE) Urine Glucose (UA) (NEGATIVE) Urine Ketones (NEGATIVE) Urine Occult Blood (NEGATIVE) Urine Nitrite (NEGATIVE) Urine Bilirubin (NEGATIVE) Urine Urobilinogen (0.2-1.0) mg/dL Ur Leukocyte Esterase (NEGATIVE) Urine RBC /HPF Urine WBC (0-5/HPF) /HPF Ur Epithelial Cells (NOT SEEN) /HPF Urine Bacteria (0-FEW/HPF) /HPF SARS-CoV-2 RNA (JENA) (NEGATIVE) Blood Type Gel Antibody Screen Crossmatch 01/02/21 Range/Units 08:16 WBC (5.0-10.0) 10^3/uL RBC (4.6-6.2) 10^6/uL Hgb (14.0-18.0) g/dL Hct (40.0-54.0) % MCV (80-100) fL MCH (27.0-34.0) pg MCHC (33.0-35.0) g/dL Plt Count (150-450) 10^3/uL Neut % (Auto) (42.2-75.2) % Lymph % (Auto) (20.5-50.1) % [place] % (Auto) (2-8) % Eos % (Auto) (1.0-3.0) % Baso % (Auto) (0.0-1.0) % Percent Retic (0.5-1.5) % PT (9.0-12.0) SEC INR (0.9-1.2) APTT (22.0-34.0) SEC Sodium (136-145) mmol/L Potassium (3.5-5.1) mmol/L Chloride (98-107) mmol/L Carbon Dioxide (21-32) mmol/L Anion Gap (7-13) mEq/L BUN (7-18) mg/dL Creatinine (0.70-1.30) mg/dL Est Cr Clr Drug Dosing mL/min Estimated GFR (MDRD) BUN/Creatinine Ratio (No establ ref range) Glucose (70-99) mg/dL POC Glucose 131 H (70-99) mg/dL Lactic Acid (0.4-2.0) mmol/L Calcium (8.5-10.1) mg/dL Iron (65-175) ug/dL TIBC (250-450) ug/dL % Saturation (20.0-50.0) % Ferritin (26-388) mg/mL Total Bilirubin (0.2-1.0) mg/dL AST (15-37) U/L ALT (16-63) U/L Alkaline Phosphatase (46-116) U/L Lactate Dehydrogenase (85-227) U/L Troponin I High Sens (<=76) pg/mL B-Natriuretic Peptide (0-100) pg/ml Total Protein (6.4-8.2) g/dL Albumin (3.4-5.0) g/dL Globulin Albumin/Globulin Ratio PSA Screen (0.00-4.00) ng/mL Vitamin B12 (193-986) pg/mL Folate (8.6-58.9) ng/mL Free T4 (0.76-1.46) ng/dL TSH, Ultra Sensitive (0.36-3.74) uIU/mL Urine Color (YELLOW) Urine Appearance (CLEAR) Urine pH (5.0-9.0) Ur Specific [place] (1.005-1.030) Urine Protein (NEGATIVE) Urine Glucose (UA) (NEGATIVE) Urine Ketones (NEGATIVE) Urine Occult Blood (NEGATIVE) Urine Nitrite (NEGATIVE) Urine Bilirubin (NEGATIVE) Urine Urobilinogen (0.2-1.0) mg/dL Ur Leukocyte Esterase (NEGATIVE) Urine RBC /HPF Urine WBC (0-5/HPF) /HPF Ur Epithelial Cells (NOT SEEN) /HPF Urine Bacteria (0-FEW/HPF) /HPF SARS-CoV-2 RNA (JENA) (NEGATIVE) Blood Type Gel Antibody Screen Crossmatch YANY Results - Last 24 hrs: Microbiology 01/01/21 18:30 Stool Occult Blood (YANY) - Final Stool / Feces NEGATIVE OCCULT BLOOD REFERENCE RANGE: NEGATIVE Med Orders - Current: Current Medications Acetaminophen (Acetaminophen 325 Mg Tab) 650 mg PO Q4H PRN PRN Reason: Pain (Mild 1-3)/fever Albuterol (Albuterol 6.7 Gm Inhaler) 0 gm INH Q4H PRN PRN Reason: Shortness of Breath Last Admin: 01/02/21 08:06 Dose: 2 puff Documented by: Diazepam (Diazepam 5 Mg Tab) 5 mg PO BEDTIME PRN PRN Reason: Sleep Folic Acid (Folic Acid 1 Mg Tab) 1 mg PO DAILY [facility] Azithromycin 500 mg/ Sodium (Chloride) 250 mls @ 250 mls/hr IV BEDTIME [facility] Last Admin: 01/01/21 23:20 Dose: 250 mls/hr Documented by: Ceftriaxone Sodium 1 gm/ (Sodium Chloride) 50 mls @ 100 mls/hr IV Q24H [facility] Last Admin: 01/01/21 22:44 Dose: 100 mls/hr Documented by: Sodium Chloride (Sodium Chloride 0.45%) 1,000 mls @ 50 mls/hr IV ASDIRECTED REFUGIO Montelukast Sodium (Montelukast 10 Mg Tab) 10 mg PO DAILY [facility] Non-Formulary Medication (Fluticasone/Vilanterol) 1 puff INH DAILY [facility] Non-Formulary Medication (Roflumilast [Daliresp]) 1 tab PO DAILY [facility] Non-Formulary Medication (Umeclidinium [place] [Incruse Ellipta*]) 1 puff INH DAILY [facility] Ondansetron HCl (Ondansetron 4 Mg/2 Ml Sdv) 4 mg IVPUSH Q4H PRN PRN Reason: Nausea/Vomiting Pantoprazole Sodium (Pantoprazole 40 Mg Vial) 40 mg IVPUSH Q12H [facility] Last Admin: 01/01/21 22:11 Dose: 40 mg Documented by: Sodium Chloride (Sodium Chloride 0.9% 10 Ml Syringe) 10 ml FLUSH ASDIRECTED PRN PRN Reason: Keep Vein Open Sucralfate (Sucralfate 1 Gm Tab) 1 gm PO QID [facility] Tamsulosin HCl (Tamsulosin 0.4 Mg Cap.Er) 0.4 mg PO BEDTIME REFUGIO Venlafaxine HCl (Venlafaxine 150 Mg Cap.Er) 150 mg PO DAILY REFUGIO Discontinued Medications Iopamidol (Iopamidol 612 Mg/Ml 100 Ml Bottle) 100 ml IVPUSH ONETIME ONE Stop: 01/01/21 19:26 Last Admin: 01/01/21 19:27 Dose: 100 ml Documented by: Potassium Chloride (Potassium Chloride 10 Meq Tab.Er) 40 meq PO ONETIME ONE Stop: 01/01/21 21:23 Last Admin: 01/01/21 22:11 Dose: 40 meq Documented by: - Exam General: Reports: Alert, Oriented HEENT: Reports: Pupils Equal, Pupils Reactive, EOMI, Mucous Membr. Moist/[place] Neck: Reports: Supple Lungs: Reports: Clear to Auscultation, Normal Respiratory Effort Cardiovascular: Reports: Regular Rate, Regular Rhythm GI/Abdominal Exam: Normal Bowel Sounds, Soft, Non-Tender, No Organomegaly, No Distention, No Abnormal Bruit, No Mass, Pelvis Stable (Male) Exam: No: No Hernia, Normal Inspection, Normal Prostate, Circumcised Back Exam: Reports: Normal Inspection, Full Range of Motion Extremities: Normal Inspection, Normal Range of Motion, Non-Tender, No Pedal Edema, Normal Capillary Refill Skin: Reports: Warm, Dry, Intact Wound/Incisions: Reports: Healing Well Neurological: Reports: No New Focal Deficit Psy/Mental Status: Reports: Alert, Normal Affect, Normal Mood
[2021-01-02] MEDS: Pantoprazole 40 MG Vial IVPUSH SCH ×2 (10:10→10:19)
[2021-01-02] MEDS ORDERED: Tamsulosin 0.4 MG Cap.ER PO SCH (21:00)
== END 2021-01-02 10:40 | DRG 811 ==
LOC: DL.ED 17:02 → DL.MS 20:02
PROVIDERS: ADMIT Internal Medicine; ATTEND Internal Medicine
PROC: 30233N1 Transfusion of Nonautologous Red Blood Cells into Peripheral Vein, Percutaneous Approach (ICD-10-PCS; principal; 2021-01-01)
DX: D64.9 Anemia, unspecified (principal); R10.9 Unspecified abdominal pain; D53.9 Nutritional anemia, unspecified; J18.9 Pneumonia, unspecified organism; E87.1 Hypo-osmolality and hyponatremia; K57.90 Diverticulosis of intestine, part unspecified, without perforation or abscess without bleeding; E87.6 Hypokalemia; M10.9 Gout, unspecified; F32.9 Major depressive disorder, single episode, unspecified; J44.9 Chronic obstructive pulmonary disease, unspecified; Z20.822 Contact with and (suspected) exposure to COVID-19; I25.10 Atherosclerotic heart disease of native coronary artery without angina pectoris; E78.5 Hyperlipidemia, unspecified; I10 Essential (primary) hypertension; E66.9 Obesity, unspecified; N40.0 Benign prostatic hyperplasia without lower urinary tract symptoms; I48.91 Unspecified atrial fibrillation; F41.9 Anxiety disorder, unspecified; G47.00 Insomnia, unspecified; M19.90 Unspecified osteoarthritis, unspecified site; F90.9 Attention-deficit hyperactivity disorder, unspecified type; Z79.899 Other long term (current) drug therapy; Z90.49 Acquired absence of other specified parts of digestive tract; I25.2 Old myocardial infarction; Z95.5 Presence of coronary angioplasty implant and graft; Z87.891 Personal history of nicotine dependence; Z98.41 Cataract extraction status, right eye; Z98.42 Cataract extraction status, left eye
CPT/HCPCS: 36415; 36430; 74177; 80048; 80053; 81001; 82272; 82607; 82668; 82728; 82746; 82947; 83036; 83540; 83550; 83605; 83615; 83880; 84439; 84443; 84484; 85018; 85025; 85045; 85610; 85730; 86850; 86900; 86901; 86920; 86922; 93005; 93010; 99284; 99285-25; A9270-GY; C9113; G0103; J0456; J0696; J7050; P9016; Q9967; U0002

== ENCOUNTER 2021-10-07 16:31 | Observation (INO) | payer MEDICARE, BC ==
[2021-10-07 17:58] LABS: ANION GAP 8.5 mEq/L (7-13); CHLORIDE,CL 100 mmol/L (98-107); SODIUM,NA 132 mmol/L (136-145)
[2021-10-07] MEDS: Sodium Chloride 0.9% 10 ML Syringe FLUSH PRN (18:19)
[2021-10-07] MEDS ORDERED: HYDROmorphone 0.5 MG/0.5 ML Syringe IVPUSH ONE (19:22)
[2021-10-07] MEDS ORDERED: Ciprofloxacin 500 MG Tab PO ONE (20:26)
[2021-10-07] MEDS ORDERED: Acetaminophen 500 MG Tab PO ONE (20:59)
[2021-10-07] MEDS ORDERED: 50% Dextrose in Water 50 ML Syringe IVPUSH PRN (21:28)
[2021-10-07] MEDS ORDERED: Lidocaine/Prilocaine 2.5-2.5% Crm 5 GM Tube TOP PRN (21:29)
[2021-10-07] MEDS ORDERED: Diazepam 5 MG Tab PO PRN (21:29)
[2021-10-07] MEDS ORDERED: Acetaminophen 325 MG Tab PO PRN (21:29)
[2021-10-07] MEDS ORDERED: oxyCODONE 5 MG Tab PO PRN (21:29)
[2021-10-07] MEDS ORDERED: Albuterol/Ipratropium 3.0-0.5 MG/3 ML Neb Soln NEB PRN (21:33)
[2021-10-07] MEDS ORDERED: Ondansetron 4 MG Tab.DIS PO PRN (21:34)
[2021-10-07] MEDS ORDERED: Temazepam 15 MG Cap PO PRN (21:34)
[2021-10-07] MEDS ORDERED: Tamsulosin 0.4 MG Cap.ER PO SCH (23:00)
[2021-10-07] MEDS ORDERED: Montelukast 10 MG Tab PO SCH (23:00)
[2021-10-07] MEDS: Azithromycin 250 MG Tab PO SCH (23:59)
[2021-10-08] MEDS: Albuterol/Ipratropium 3.0-0.5 MG/3 ML Neb Soln NEB SCH ×3 (03:00→13:38)
[2021-10-08] MEDS ORDERED: Budesonide 0.5 MG/2 ML Neb Susp NEB SCH (07:00)
[2021-10-08 08:07] LABS: ANION GAP 13.9 mEq/L (7-13); CHLORIDE,CL 105 mmol/L (98-107); SODIUM,NA 141 mmol/L (136-145)
[2021-10-08] MEDS: Azithromycin 250 MG Tab PO SCH (08:29)
[2021-10-08] MEDS: Insulin Lispro 100 Units/ML 3 ML Vial SUBCUT SCH ×2 (08:31→15:44)
[2021-10-08] MEDS ORDERED: Lidocaine 5% 700 MG Patch TRDERM SCH (09:00)
[2021-10-08] MEDS ORDERED: Furosemide 20 MG Tab PO SCH (09:00)
[2021-10-08] MEDS ORDERED: Azithromycin 250 MG Tab PO SCH (09:00)
[2021-10-08] MEDS ORDERED: Diltiazem 120 MG Cap.CD PO SCH (09:00)
[2021-10-08] MEDS ORDERED: Non-Formulary Medication 1 Each (Valacyclovir Hcl [Valtrex] 500 MG Tablet) PO SCH (09:00)
[2021-10-08] MEDS ORDERED: Non-Formulary Medication 1 Each (Roflumilast [Daliresp] 250 MCG Tablet) PO SCH (09:00)
[2021-10-08] MEDS ORDERED: Venlafaxine 150 MG CAP.ER PO SCH (09:00)
[2021-10-08] MEDS ORDERED: Montelukast 10 MG Tab PO SCH (09:00)
[2021-10-08] MEDS ORDERED: Morphine 15 MG Tab.ER PO SCH (09:00)
[2021-10-08] MEDS ORDERED: POSACONAZOLE 100 MG PO SCH (09:00)
[2021-10-08] MEDS ORDERED: Sodium Chloride 0.9% 20 ML SDV FLUSH PRN (13:42)
[2021-10-08] MEDS: Sodium Chloride 0.9% 10 ML Syringe FLUSH PRN (13:47)
[2021-10-08] MEDS ORDERED: Tamsulosin 0.4 MG Cap.ER PO SCH (21:00)
== END 2021-10-08 13:30 | disposition home or self-care (01) ==
LOC: DL.ED 16:31 → DL.MS 20:51
PROVIDERS: ADMIT Internal Medicine; ATTEND Internal Medicine
DX: D46.9 Myelodysplastic syndrome, unspecified (principal); R19.7 Diarrhea, unspecified; D61.818 Other pancytopenia; E87.1 Hypo-osmolality and hyponatremia; J44.9 Chronic obstructive pulmonary disease, unspecified; R73.9 Hyperglycemia, unspecified; G89.29 Other chronic pain
CPT/HCPCS: 36415; 36430; 71045; 80048; 80053; 81001; 82272; 82947; 83010; 83605; 83615; 83690; 83735; 85025; 86140; 86850; 86900; 86901; 86920; 86922; 87040; 87046; 87086; 96374; 99217; 99219; 99284; A9270; J1170; J1642; J1815; J3490; P9016; 99285; J7620-GY

== ENCOUNTER 2021-10-14 19:48 | Emergency (ER) | payer MEDICARE, BC ==
[2021-10-14 21:40] LABS: ANION GAP 14.2 mEq/L (7-13); CHLORIDE,CL 102 mmol/L (98-107); SODIUM,NA 139 mmol/L (136-145)
[2021-10-14] MEDS ORDERED: Potassium Chloride 10 MEQ Tab.ER PO ONE (21:52)
[2021-10-14] MEDS ORDERED: Furosemide 100 MG/10 ML SDV IVPUSH ONE (22:57)
[2021-10-16] MEDS ORDERED: Ondansetron 4 MG Tab.DIS PO ONE (02:49)
[2021-10-16] MEDS ORDERED: Codeine/guaiFENesin 10-100 MG/5 ML Syrup 5 ML Cup PO ONE (02:50)
== END 2021-10-14 23:51 | disposition home or self-care (01) ==
LOC: DL.ED 19:48
DX: E87.71 Transfusion associated circulatory overload (principal); I48.91 Unspecified atrial fibrillation; E78.00 Pure hypercholesterolemia, unspecified; I25.2 Old myocardial infarction; J44.9 Chronic obstructive pulmonary disease, unspecified; N40.0 Benign prostatic hyperplasia without lower urinary tract symptoms; M10.9 Gout, unspecified; Z68.28 Body mass index [BMI] 28.0-28.9, adult; E66.9 Obesity, unspecified; Z79.899 Other long term (current) drug therapy; Z88.8 Allergy status to other drugs, medicaments and biological substances
CPT/HCPCS: 36415; 71250; 80053; 83605; 83880; 84484; 85025; 86140; 87040; 93005; 96374; 99284; A9270; J1642; J1940

== ENCOUNTER 2021-11-17 17:24 | Emergency (ER) | payer MEDICARE, BC ==
[2021-11-17] MEDS ORDERED: Furosemide 40 MG/4 ML VIAL IVPUSH ONE (19:00)
[2021-11-17 19:05] LABS: ANION GAP 9.9 mEq/L (7-13); CHLORIDE,CL 101 mmol/L (98-107); SODIUM,NA 136 mmol/L (136-145)
[2021-11-17] MEDS ORDERED: Furosemide 100 MG/10 ML SDV IVPUSH ONE (19:15)
== END 2021-11-17 19:42 | disposition home or self-care (01) ==
LOC: DL.ED 17:24
DX: E87.71 Transfusion associated circulatory overload (principal); I48.91 Unspecified atrial fibrillation; E78.00 Pure hypercholesterolemia, unspecified; I25.2 Old myocardial infarction; J44.9 Chronic obstructive pulmonary disease, unspecified; N40.0 Benign prostatic hyperplasia without lower urinary tract symptoms; E66.9 Obesity, unspecified; Z88.8 Allergy status to other drugs, medicaments and biological substances; Z79.899 Other long term (current) drug therapy; Z68.27 Body mass index [BMI] 27.0-27.9, adult
CPT/HCPCS: 36415; 36430; 71045; 80053; 85025; 86850; 86900; 86901; 86920; 86922; 93005; 93010; 96374; 96376; 99283; 99285; A9270; J1940; P9016; P9034

== ENCOUNTER 2022-03-16 11:54 | Inpatient (IN) | payer MEDICARE, BC ==
[2022-03-16] MEDS ORDERED: Sodium Chloride 0.9% 10 ML Syringe FLUSH PRN (12:37)
[2022-03-16] MEDS ORDERED: Polyethylene Glycol 3350 Powder 17 GM Packet PO PRN (12:37)
[2022-03-16] MEDS ORDERED: Docusate Sodium 100 MG Cap PO PRN (12:37)
[2022-03-16] MEDS ORDERED: Ondansetron 4 MG Tab.DIS PO PRN (12:37)
[2022-03-16] MEDS ORDERED: Ondansetron 4 MG/2 ML SDV IVPUSH PRN (12:37)
[2022-03-16] MEDS ORDERED: Acetaminophen 325 MG Tab PO PRN (12:37)
[2022-03-16] MEDS ORDERED: Acetaminophen/HYDROcodone 325-5 MG Tab PO PRN (12:37)
[2022-03-16] MEDS ORDERED: Diazepam 5 MG Tab PO PRN (12:43)
[2022-03-16] MEDS ORDERED: Nitroglycerin 0.4 MG Tab.SL SL PRN (12:43)
[2022-03-16] MEDS: Hydrocortisone Sodium Succinate 100 MG/2 ML SDV IVPUSH SCH ×2 (13:38→22:50)
[2022-03-16] MEDS: Cefepime 1 GM in Sodium Chloride 0.9% 50 ML IV SCH ×2 (13:38→20:36)
[2022-03-16 14:52] LABS: ANION GAP 11.4 mEq/L (7-13)
[2022-03-16] MEDS ORDERED: Colchicine 0.6 MG Tab PO PRN (16:10)
[2022-03-16] MEDS: Omeprazole 20 MG Cap.CR PO SCH (16:28)
[2022-03-16] MEDS: Furosemide 20 MG Tab PO SCH (16:29)
[2022-03-16] MEDS: Albuterol/Ipratropium 3.0-0.5 MG/3 ML Neb Soln NEB PRN (16:54)
[2022-03-16] MEDS ORDERED: diphenhydrAMINE 25 MG Tab PO ONE (17:00)
[2022-03-16] MEDS ORDERED: Furosemide 20 MG/2 ML VIAL IVPUSH ONE (18:30)
[2022-03-16] MEDS: Morphine 15 MG Tab.ER PO SCH (20:38)
[2022-03-16] MEDS: Sodium Chloride 0.9% 10 ML Syringe FLUSH SCH (20:39)
[2022-03-17] MEDS: Hydrocortisone Sodium Succinate 100 MG/2 ML SDV IVPUSH SCH (05:39)
[2022-03-17] MEDS: Albuterol/Ipratropium 3.0-0.5 MG/3 ML Neb Soln NEB PRN (05:39)
[2022-03-17] MEDS: Omeprazole 20 MG Cap.CR PO SCH ×2 (05:39→16:27)
[2022-03-17 08:19] LABS: ANION GAP 8.4 mEq/L (7-13)
[2022-03-17] MEDS ORDERED: Potassium Chloride 10 MEQ Tab.ER PO ONE (08:41)
[2022-03-17] MEDS ORDERED: Tamsulosin 0.4 MG Cap.ER PO SCH (09:00)
[2022-03-17] MEDS ORDERED: Diltiazem 120 MG Cap.CD PO SCH (09:00)
[2022-03-17] MEDS ORDERED: Venlafaxine 150 MG Cap.ER PO SCH (09:00)
[2022-03-17] MEDS: Furosemide 20 MG Tab PO SCH (09:24)
[2022-03-17] MEDS: Morphine 15 MG Tab.ER PO SCH (09:24)
[2022-03-17] MEDS: Cefepime 1 GM in Sodium Chloride 0.9% 50 ML IV SCH (09:29)
[2022-03-17] MEDS ORDERED: predniSONE 20 MG Tab PO SCH (09:30)
[2022-03-17] MEDS: Sodium Chloride 0.9% 10 ML Syringe FLUSH SCH (09:37)
[2022-03-17] MEDS ORDERED: Furosemide 40 MG/4 ML VIAL IVPUSH ONE (09:45)
[2022-03-18] MEDS ORDERED: Lidocaine 5% 700 MG Patch TRDERM SCH (21:00)
== END 2022-03-17 16:20 | disposition home or self-care (01) | DRG 193 ==
LOC: DL.MS 12:30
PROVIDERS: ADMIT Hospitalist; ATTEND Hospitalist
PROC: 30233R1 Transfusion of Nonautologous Platelets into Peripheral Vein, Percutaneous Approach (ICD-10-PCS; principal; 2022-03-16)
PROC: 30233N1 Transfusion of Nonautologous Red Blood Cells into Peripheral Vein, Percutaneous Approach (ICD-10-PCS; 2022-03-16)
DX: J18.9 Pneumonia, unspecified organism (principal); J96.01 Acute respiratory failure with hypoxia; D84.9 Immunodeficiency, unspecified; D46.Z Other myelodysplastic syndromes; J44.0 Chronic obstructive pulmonary disease with (acute) lower respiratory infection; Z66 Do not resuscitate; D64.9 Anemia, unspecified; G89.29 Other chronic pain; I50.9 Heart failure, unspecified; H54.7 Unspecified visual loss; I48.91 Unspecified atrial fibrillation; E78.00 Pure hypercholesterolemia, unspecified; K59.09 Other constipation; K21.9 Gastro-esophageal reflux disease without esophagitis; N40.0 Benign prostatic hyperplasia without lower urinary tract symptoms; Z96.652 Presence of left artificial knee joint; M10.9 Gout, unspecified; M19.90 Unspecified osteoarthritis, unspecified site; F41.9 Anxiety disorder, unspecified; F32.A Depression, unspecified; Z85.828 Personal history of other malignant neoplasm of skin; Z86.16 Personal history of COVID-19; Z79.52 Long term (current) use of systemic steroids; Z88.8 Allergy status to other drugs, medicaments and biological substances; Z79.899 Other long term (current) drug therapy; I25.2 Old myocardial infarction; Z86.010 Personal history of colon polyps; Z95.5 Presence of coronary angioplasty implant and graft; Z90.49 Acquired absence of other specified parts of digestive tract; Z98.49 Cataract extraction status, unspecified eye
CPT/HCPCS: 36415; 36430; 71045; 80053; 80202; 85025; 85027; 86850; 86900; 86901; 86920; 86922; A9270-GY; J0692; J1642; J1720; J1940; J3370; J3490; J7050; J7512; J7620-GY; P9016; P9034